=== PATIENT | male | born 1985 | race African-American/Black ===

== ENCOUNTER 2017-07-09 03:38 | Emergency (ER) | payer MEDICAID ==
[2017-07-09 03:44] VITALS: BP 142/92
[2017-07-09] MEDS ORDERED: LIDOCAINE 1% INJ-PF (10 MG/ML) 30 ML SDV INJ ONE (04:10)
[2017-07-09] MEDS ORDERED: AZITHROMYCIN 250 MG TABLET PO ONE (04:10)
[2017-07-09] MEDS ORDERED: CEFTRIAXONE INJ 250 MG VIAL IM ONE (04:10)
--- NOTE | 2017-07-09 04:12 | ER Document Report ---
HPI - HPI Pain Level: Denies Notes: Patient is a 32-year-old male with no significant past medical history who presents to the ED complaining of mild burning with urination 1 day. Patient is concerned because his girlfriend went away on a trip and he did not have symptoms until after she came back recently. Patient states that he would like testing performed for chlamydia and gonorrhea. He has not noticed any abundant urethral discharge. He is eating and drinking without difficulties. He is otherwise urinating normally and having normal bowel movements. Denies any drug allergies. Patient does admit to smoking but denies IV drug use. Denies any headache, fever, URI, sore throat, chest pain, palpitations, syncope, cough , shortness of breath, wheeze, dyspnea, abdominal pain, nausea/vomiting/diarrhea , urinary retention, hematuria, loss of control of bowel or bladder, numbness/ tingling, muscle paralysis/weakness, or rash. - ROS Systems Reviewed and Negative: Yes All other systems reviewed and negative Past Medical History - Social History Smoking Status: Current Every Day Smoker Family History: Reviewed & Not Pertinent Vertical Provider Document - CONSTITUTIONAL Agree With Documented VS: Yes Notes: PHYSICAL EXAMINATION: GENERAL: Well-appearing, well-nourished and in no acute distress. HEAD: Atraumatic, normocephalic. EYES: Pupils equal round and reactive to light, extraocular movements intact, sclera anicteric, conjunctiva are normal. ENT: EAC clear b/l. TM's intact b/l without erythema, fluid, or perforation. Nares patent and without discharge. oropharynx clear without exudates. No tonsilar hypertrophy or erythema. Moist mucous membranes. No sinus tenderness. NECK: Normal range of motion, supple without lymphadenopathy LUNGS: Breath sounds clear to auscultation bilaterally and equal. No wheezes rales or rhonchi. HEART: Regular rate and rhythm without murmurs, rubs, gallops. ABDOMEN: Soft, nontender, nondistended abdomen. No guarding, no rebound. No masses appreciated. Normal bowel sounds present. No CVA tenderness bilaterally. : uncircum. No erythema, induration, rash, lesions, or ulceration. Non- tender to palp of penis/testicles. No inguinal adenopathy. Possible scant urethral discharge, but not enough to make a great clinical decision. PSYCH: Normal mood, normal affect. SKIN: Warm, Dry, normal turgor, no rashes or lesions noted. - INFECTION CONTROL TRAVEL OUTSIDE OF THE [place] IN LAST 30 DAYS: No Course - Re-evaluation Re-evalutation: 07/09/17 04:10 Patient is an afebrile, well-hydrated, 32-year-old male who presents to the ED with dysuria. Vitals are acceptable. PE is otherwise unremarkable. Urinalysis , chlamydia/gonorrhea, urinary culture are all pending. Patient was given Zithromax and Rocephin. Patient did not want to wait for any of his results at this time and he will call back later for them. Patient is aware that he may have to return if other tests or treatment are needed. No other labs or imaging warranted at this time based on H&P. Advised patient that he needs to go the health department for further evaluation and testing as well. Recheck with your PCM in 3-5 days. Return to the ED with any worsening/concerning symptoms otherwise as reviewed discharge. Patient is in agreement. - Vital Signs Vital signs: Temp Pulse Resp BP Pulse Ox 98.8 F 90 20 142/92 H 95 07/09/17 03:43 07/09/17 03:43 07/09/17 03:43 07/09/17 03:43 07/09/17 03:43 Discharge - Discharge Clinical Impression: Dysuria Condition: Stable Disposition: HOME, SELF-CARE Additional Instructions: Push fluids (i.e. water, cranberry juice) Proper hygenic technique Keep the skin clean Safe sexual practices with condoms everytime Tylenol/ibuprofen as needed May use over the counter AZO for burning with urination Check in with the health department this week for further testing* Your chlamydia/Ghon test are pending and you will be notified if positive results; you may call in 1 day for the results as well Return immediately if symptoms worsen F/u with your PCM in 3-5 days for a recheck Consider consult with a Urologist for ongoing/worsening symptoms. Return to the ED with any development of ONEAL/fever, trouble with vision, eye redness, worsening pain, urethral discharge, urinary retention, blood in the urine, flank pain, abdominal pain, n/v, Chest Pain, shortness of breath, joint pains, trouble breathing, or any other worsening/concerning symptoms as needed otherwise. Forms: Elevated Blood Pressure, Smoking Cessation Education Referrals: HEALTH DEPT,[facility] [NO LOCAL MD] - Follow up in 3-5 days
[2017-07-09 14:22] LABS: CHLAM PCR NOT DETECTED (NOT DETECT); GON PCR DETECTED (NOT DETECT)
== END 2017-07-09 04:27 | disposition home or self-care (01) ==
LOC: ER 03:38
DX: R30.0 Dysuria (principal); F17.200 Nicotine dependence, unspecified, uncomplicated
CPT/HCPCS: 99283; 96372; 87491; 87591; Q0144; J3490; J0696

== ENCOUNTER 2017-07-09 23:08 | Emergency (ER) | payer MEDICAID ==
[2017-07-09] MEDS ORDERED: ALBUTEROL SULFATE HFA (90 MCG/PUFF) 8 GM MDI (1 MDI/ER DISP) IH ONE (23:53)
[2017-07-09] MEDS ORDERED: PREDNISONE 20 MG TABLET PO ONE (23:53)
--- NOTE | 2017-07-09 23:56 | ER Document Report ---
ED Respiratory Problem - General Chief Complaint: Chest pain/ cough Stated Complaint: CHEST PAIN Time Seen by Provider: 07/09/17 23:45 Notes: Patient is a 32-year-old male smoker that comes emergency department for chief complaint of progressively worsening coughing, wheezing, and pain in his chest with cough for the past 4 days. He denies pain without cough. He denies fever. He has multiple sick family members. He comes by EMS, was given nitroglycerin and aspirin. He states now he just wants to leave. He denies any daily medications or past medical history, denies family history of cardiac disease. TRAVEL OUTSIDE OF THE [place] IN LAST 30 DAYS: No Past Medical History - General Information source: Patient - Social History Smoking Status: Current Every Day Smoker Smoking Education Provided: Yes - <3 min Frequency of alcohol use: None Drug Abuse: None Lives with: Family Family History: Reviewed & Not Pertinent - Medical History Medical History: Negative Surgical Hx: Negative - Immunizations Immunizations up to date: Yes Hx Diphtheria, Pertussis, Tetanus Vaccination: Yes Review of Systems - Review of Systems Constitutional: No symptoms reported EENT: No symptoms reported Cardiovascular: No symptoms reported Respiratory: See HPI Gastrointestinal: No symptoms reported Genitourinary: No symptoms reported Male Genitourinary: No symptoms reported Musculoskeletal: No symptoms reported Skin: No symptoms reported Hematologic/Lymphatic: No symptoms reported Neurological/Psychological: No symptoms reported Physical Exam - Vital signs Vitals: Temp Pulse Resp BP Pulse Ox 97.5 F 76 18 137/91 H 97 07/10/17 00:00 07/10/17 00:00 07/10/17 00:00 07/10/17 00:00 07/10/17 00:00 Interpretation: Normal - General General appearance: Appears well, Alert In distress: None - HEENT Head: Normocephalic, Atraumatic Eyes: Normal Conjunctiva: Normal Extraocular movements intact: Yes Eyelashes: Normal Pupils: PERRL Nasal: Normal Mouth/Lips: Normal Mucous membranes: Normal Pharynx: Normal Neck: Normal - Respiratory Respiratory status: No respiratory distress Chest status: Nontender Breath sounds: Normal. No: Decreased air movement, Wheezing Chest palpation: Normal - Cardiovascular Rhythm: Regular. No: Tachycardia Heart sounds: Normal auscultation, S1 appreciated, S2 appreciated Murmur: No Normal capillary refill: Yes - Abdominal Inspection: Normal Distension: No distension Bowel sounds: Normal Tenderness: Nontender. No: Tender, Guarding Organomegaly: No organomegaly - Back Back: Normal, Nontender. No: Tender, CVA tenderness - Extremities General upper extremity: Normal inspection, Nontender, Normal color, Normal ROM , Normal temperature General lower extremity: Normal inspection, Nontender, Normal color, Normal ROM , Normal temperature, Normal weight bearing. No: Nidia's sign - Neurological Neuro grossly intact: Yes Cognition: Normal Orientation: AAOx4 [place] Coma Scale Eye Opening: Spontaneous Shantanu Coma Scale Verbal: Oriented Shantanu Coma Scale Motor: Obeys Commands [place] Coma Scale Total: 15 Speech: Normal Cranial nerves: Normal Cerebellar coordination: Normal Motor strength normal: LUE, RUE, LLE, RLE Additional motor exam normals: Equal deckhand maintenance Sensory: Normal - Psychological Associated symptoms: Normal affect, Normal mood - Skin Skin Temperature: Warm Skin Moisture: Dry Skin Color: Normal Course - Re-evaluation Re-evalutation: EKG sinus rhythm with no T-wave inversions or ST segment changes in consecutive leads. Recommended chest x-ray based on his symptoms but patient declined, patient states that he has a family emergency at the house and he needs to leave immediately. Patient has clear lungs, no respiratory distress, unremarkable vital signs, and symptoms suggestive of upper respiratory virus and bronchitis. Patient insists he was wheezing at night, he is provided with an inhaler, he was given a short taper dose of prednisone instead of the full asthma regimen after discussion based on his preference. Discussed follow-up and return precautions, discussed smoking cessation, patient and significant other state understanding and agreement. - Vital Signs Vital signs: Temp Pulse Resp BP Pulse Ox 97.5 F 76 18 137/91 H 97 07/10/17 00:00 07/10/17 00:00 07/10/17 00:00 07/10/17 00:00 07/10/17 00:00 Discharge - Discharge Clinical Impression: Cough, Tobacco abuse Condition: Stable Disposition: HOME, SELF-CARE Additional Instructions: Your evaluation and workup to this point is most consistent with a developing bronchitis, this is usually a viral upper respiratory infection. This takes time to resolve. Recommendation is to take the prednisone, use the albuterol if needed, take the Tessalon for cough if needed. Stop smoking. Follow-up with primary care. Return if you worsen including difficulty breathing, spiking fever, or any other concerning or worsening symptoms. Prescriptions: Benzonatate [Tessalon Perle 100 mg Capsule] 100 mg PO Q8HP PRN #20 cap PRN Reason: Albuterol Sulfate [Proair HFA Inhalation Aerosol 8.5 gm MDI] 2 puff IH Q4H PRN # 1 mdi PRN Reason: Prednisone [Deltasone 10 mg Tablet] 10 mg PO ASDIR PRN #21 tablet PRN Reason: Forms: Smoking Cessation Education
[2017-07-10 01:06] VITALS: BP 137/91
--- NOTE | 2017-07-10 07:17 | EKG REPORT ---
SEVERITY:- NORMAL ECG - SINUS RHYTHM : Confirmed by: Michael Vasquez MD 10-Jul-2017 07:16:49
== END 2017-07-10 00:09 | disposition home or self-care (01) ==
LOC: MERGE 23:08 → ER 23:08
DX: R07.9 Chest pain, unspecified (principal); R05 Cough; F17.200 Nicotine dependence, unspecified, uncomplicated
CPT/HCPCS: 93005; 99283; 93010; J7512; J3490

== ENCOUNTER 2017-07-16 23:29 | Emergency (ER) | payer MEDICAID ==
[2017-07-16 23:49] VITALS: BP 120/71
[2017-07-17] MEDS ORDERED: CEFTRIAXONE INJ 500 MG VIAL IM ONE (01:23)
[2017-07-17] MEDS ORDERED: LIDOCAINE 1% INJ-PF (10 MG/ML) 30 ML SDV INJ ONE (01:23)
[2017-07-17] MEDS ORDERED: AZITHROMYCIN 250 MG TABLET PO ONE (01:23)
[2017-07-17] MEDS ORDERED: METRONIDAZOLE 500 MG TABLET PO ONE (01:23)
[2017-07-17 02:04] LABS: CHLAM PCR NOT DETECTED (NOT DETECT); GON PCR NOT DETECTED (NOT DETECT)
--- NOTE | 2017-07-17 02:13 | ER Document Report ---
HPI - HPI Pain Level: 3 Context: Patient is a 32-year-old male presents emergency department the chief complaint of mild burning at the tip of his penis without pyuria, discharge. Patient states that he is treated for gonorrhea week ago he was told to return symptoms do not improve. - CONSTITUTIONAL Constitutional: DENIES: Fever, Chills - NEURO Neurology: DENIES: Headache, Weakness, Vision blurred, Dizzinesss / Vertigo - CARDIOVASCULAR Cardiovascular: DENIES: Chest pain - RESPIRATORY Respiratory: DENIES: Trouble Breathing, Coughing Past Medical History - Social History Smoking Status: Current Every Day Smoker Chew tobacco use (# tins/day): No Frequency of alcohol use: None Drug Abuse: None Family History: Reviewed & Not Pertinent Patient has suicidal ideation: No Patient has homicidal ideation: No Renal/ Medical History: Denies: Hx Peritoneal Dialysis - Immunizations Immunizations up to date: Yes Hx Diphtheria, Pertussis, Tetanus Vaccination: Yes Vertical Provider Document - CONSTITUTIONAL Agree With Documented VS: Yes Notes: PHYSICAL EXAM GENERAL: Alert, interacts well. Male : Normal inspection. No evidence of vesicles, laceration or wounds. No evidence of inguinal lymphadenopathy. Testicles nontender palpation, nontender. No evidence of penile discharge NEUROLOGICAL: Alert and oriented x4. Normal speech. PSYCH: Normal affect, normal mood. SKIN: Warm, dry, normal turgor. No rashes or lesions noted. - INFECTION CONTROL TRAVEL OUTSIDE OF THE [place] IN LAST 30 DAYS: No Course - Re-evaluation Re-evalutation: 07/17/17 02:12 Patient is a 32-year-old male seen and examined, no distress. Will treat for repeat gonorrhea, chlamydia and trichomonas coverage. Patient educated to follow-up with primary care. To abstain from sexual intercourse for the next week. Patient agrees with plan stable for discharge - Vital Signs Vital signs: Temp Pulse Resp BP Pulse Ox 98.8 F 111 H 20 120/71 94 07/16/17 23:47 07/16/17 23:47 07/16/17 23:47 07/16/17 23:47 07/16/17 23:47 Discharge - Discharge Clinical Impression: STD exposure Condition: Good Disposition: HOME, SELF-CARE Additional Instructions: You been treated for chlamydia, gonorrhea and trichomonas. Please abstain from sexual intercourse for the next 7-10 days. Please follow-up with your primary care provider for any persistent symptoms. Forms: Return to Work [facility] - Follow up as needed
[2017-07-17 02:17] LABS: T.VAGINALIS (WET MOUNT) NO TRICHOMONAS SEEN; WBCS (WET MOUNT) NO WBCS SEEN; YEAST (WET MOUNT) NO YEAST SEEN
== END 2017-07-17 02:21 | disposition home or self-care (01) ==
LOC: ER 23:29
DX: Z20.2 Contact with and (suspected) exposure to infections with a predominantly sexual mode of transmission (principal); R39.89 Other symptoms and signs involving the genitourinary system; F17.200 Nicotine dependence, unspecified, uncomplicated
CPT/HCPCS: 99283; 36415; 87210; 86592; 87491; 87591; Q0144; J3490 ×2; J0696

== ENCOUNTER 2017-08-08 01:45 | Emergency (ER) | payer MEDICAID ==
[2017-08-08 02:18] LABS: ABSOLUTE BASOPHILS # (AUTO) 0.1 10^3/uL (0.0-0.2); ABSOLUTE EOSINOPHILS # (AUTO) 0.4 10^3/uL (0.0-0.6); ABSOLUTE LYMPHOCYTES (AUTO) 3.4 10^3/uL (0.5-4.7); ABSOLUTE MONOCYTES (AUTO) 1.2 10^3/uL (0.1-1.4); ABSOLUTE NEUT (AUTO) 4.9 10^3/uL (1.7-8.2); BASOPHILS % (AUTO) 1.1 % (0-2); HEMATOCRIT 38.3 % (37.9-51.0); HEMOGLOBIN 12.8 g/dL (13.5-17.0); LYMPHOCYTES % (AUTO) 34.2 % (13-45); MEAN CORPUSCULAR HEMOGLOBIN 25.2 pg (27.0-33.4); MEAN CORPUSCULAR HGB CONC 33.3 g/dL (32.0-36.0); MEAN CORPUSCULAR VOLUME 75 fl (80-97); MONOCYTES % (AUTO) 11.6 % (3-13); PLATELET COUNT 315 10^3/uL (150-450); RED BLOOD COUNT 5.08 10^6/uL (4.35-5.55); RED CELL DISTRIBUTION WIDTH 15.6 % (11.5-14.0); SEGMENTED NEUTROPHILS % (AUTO) 49.1 % (42-78); TOTAL CELLS COUNTED % (AUTO) 100 %; WHITE BLOOD COUNT 9.9 10^3/uL (4.0-10.5)
[2017-08-08 02:35] LABS: ALANINE AMINOTRANSFERASE 137 U/L (21-72); ALBUMIN 4.9 g/dL (3.5-5.0); ALKALINE PHOSPHATASE 84 U/L (38-126); ANION GAP 14 (5-19); ASPARTATE AMINO TRANSFERASE 127 U/L (17-59); BILIRUBIN,DIRECT 0.4 mg/dL (0.0-0.4); BILIRUBIN,TOTAL 0.6 mg/dL (0.2-1.3); BLOOD UREA NITROGEN 11 mg/dL (7-20); CALCIUM 10.2 mg/dL (8.4-10.2); CARBON DIOXIDE 23 mmol/L (22-30); CHLORIDE 102 mmol/L (98-107); GLUCOSE 90 mg/dL (75-110); LIPASE 76.7 U/L (23-300); POTASSIUM 4.3 mmol/L (3.6-5.0); SODIUM 139.2 mmol/L (137-145); TOTAL PROTEIN 8.9 g/dL (6.3-8.2)
[2017-08-08 02:46] LABS: APPEARANCE,URINE CLEAR; BILIRUBIN,URINE NEGATIVE (NEGATIVE); COLOR,URINE STRAW; GLUCOSE, URINE NEGATIVE (NEGATIVE); KETONES,URINE NEGATIVE (NEGATIVE); LEUKOCYTE ESTERASE,URINE NEGATIVE (NEGATIVE); NITRITE,URINE NEGATIVE (NEGATIVE); PROTEIN,URINE NEGATIVE (NEGATIVE); URINE SPECIFIC GRAVITY 1.002; UROBILINOGEN,URINE NEGATIVE mg/dL (<2.0)
--- NOTE | 2017-08-08 02:46 | ER Document Report ---
ED General - General Chief Complaint: Flank Pain Stated Complaint: FLANK PAIN Time Seen by Provider: 08/08/17 02:07 Mode of Arrival: Medic Information source: Patient Notes: 32-year-old male presents with complaints of bilateral flank pain difficulty urinating 1 day duration. Patient denies any fevers or chills notes that this morning he started having left flank pain felt pressure in the suprapubic region , notes symptoms have been intermittent and worsened just prior to arrival. Patient presents from work by EMS. He notes burning with urination TRAVEL OUTSIDE OF THE [place] IN LAST 30 DAYS: No - HPI Onset: This morning Onset/Duration: Sudden Quality of pain: Sharp Severity: Mild Pain Level: 1 Associated symptoms: Other Exacerbated by: Denies Relieved by: Denies Similar symptoms previously: No Recently seen / treated by doctor: No - Related Data Allergies/Adverse Reactions: No Known Allergies Allergy (Verified 03/16/15 20:17) Past Medical History - Social History Smoking Status: Never Smoker Cigarette use (# per day): No Chew tobacco use (# tins/day): No Smoking Education Provided: No Family History: Reviewed & Not Pertinent Patient has suicidal ideation: No Patient has homicidal ideation: No Renal/ Medical History: Denies: Hx Peritoneal Dialysis - Immunizations Immunizations up to date: Yes Hx Diphtheria, Pertussis, Tetanus Vaccination: Yes Review of Systems - Review of Systems Notes: REVIEW OF SYSTEMS: CONSTITUTIONAL : Denies fever, chills, or sweats. Denies recent illness. EENT: Denies eye, ear, throat, or mouth pain or symptoms. Denies nasal or sinus congestion or discharge. Denies throat, tongue, or mouth swelling or difficulty swallowing. CARDIOVASCULAR: Denies chest pain. Denies palpitations or racing or irregular heart beat. Denies ankle edema. RESPIRATORY: Denies cough, cold, or chest congestion. Denies shortness of breath, difficulty breathing, or wheezing. GASTROINTESTINAL: Admits to left flank pain GENITOURINARY: Admits to difficulty urinating MUSCULOSKELETAL: Denies back or neck pain or stiffness. Denies joint pain or swelling. SKIN: Denies rash, lesions or sores. HEMATOLOGIC : Denies easy bruising or bleeding. LYMPHATIC: Denies swollen, enlarged glands. NEUROLOGICAL: Denies confusion or altered mental status. Denies passing out or loss of consciousness. Denies dizziness or lightheadedness. Denies headache. Denies weakness or paralysis or loss of use of either side. Denies problems with gait or speech. Denies sensory loss, numbness, or tingling. Denies seizures. PSYCHIATRIC: Denies anxiety or stress. Denies depression, suicidal ideation, or homicidal ideation. ALL OTHER SYSTEMS REVIEWED AND NEGATIVE. PHYSICAL EXAMINATION: GENERAL: Well-appearing, well-nourished and in no acute distress. HEAD: Atraumatic, normocephalic. EYES: Pupils equal round and reactive to light, extraocular movements intact, conjunctiva are normal. ENT: Nares patent, oropharynx clear without exudates. Moist mucous membranes. NECK: Normal range of motion, supple without lymphadenopathy LUNGS: Breath sounds clear to auscultation bilaterally and equal. No wheezes rales or rhonchi. HEART: Regular rate and rhythm without murmurs ABDOMEN: Soft, mild suprapubic tenderness, nondistended abdomen. No guarding, no rebound. No masses appreciated. Musculoskeletal: Normal range of motion, no pitting or edema. No cyanosis. NEUROLOGICAL: Cranial nerves grossly intact. Normal speech, normal gait. Normal sensory, motor exams PSYCH: Normal mood, normal affect. SKIN: Warm, Dry, normal turgor, no rashes or lesions noted. Dictation was performed using [employer] voice recognition software Course - Re-evaluation Re-evalutation: 08/08/17 04:36 Patient's lab work urinalysis CT noted no significant normality patient did not notes his concern for STD, I did already test him for this given that he had a positive gonorrhea just a few weeks ago. Patient significant other is in the room states she tested negative and does not understand how he can be positive Otherwise patient will be given follow-up with health department and urology as he is otherwise stable patient notes difficulty urinating but was able to urinate 3 separate times for us After performing a Medical Screening Examination, I estimate there is LOW risk for ACUTE APPENDICITIS, BOWEL OBSTRUCTION, ACUTE CHOLECYSTITIS, PERFORATED DIVERTICULITIS, INCARCERATED HERNIA, PANCREATITIS, TESTICULAR TORSION or PERFORATED ULCER, thus I consider the discharge disposition reasonable. Also, there is no evidence or peritonitis, sepsis, or toxicity. I have reevaluated this patient multiple times and no significant life threatening changes are noted. The patient and I have discussed the diagnosis and risks, and we agree with discharging home with close follow-up with the understanding that symptoms and presentations can change. We also discussed returning to the Emergency Department immediately if new or worsening symptoms occur. We have discussed the symptoms which are most concerning (e.g., bloody stool, fever, changing or worsening pain, intractable vomiting - standard verbal up date) that necessitate immediate return. 08/08/17 04:37 - Laboratory Result Diagrams: 08/08/17 02:05 08/08/17 02:05 Laboratory results interpreted by me: 08/08/17 08/08/17 02:05 02:05 Hgb 12.8 L MCV 75 L MCH 25.2 L RDW 15.6 H AST 127 H ALT 137 H Total Protein 8.9 H - Diagnostic Test Radiology reviewed: Image reviewed, Reports reviewed Discharge - Discharge Clinical Impression: Difficulty urinating Condition: Stable Disposition: HOME, SELF-CARE Instructions: Urinary Retention ([facility]) Referrals: [facility] [Provider Group] - Follow up as needed
--- NOTE | 2017-08-08 03:49 | RADIOLOGY REPORT (SQ) ---
EXAM DESCRIPTION: CT ABDOMEN WITHOUT IV CONTRAST COMPLETED DATE/TME: 08/08/2017 03:11 CLINICAL HISTORY: 32 years Male, flank pain ,difficulty urinating Comparison: None. Technique: No contrast. Coronal and sagittal reformat. This exam was performed according to our departmental dose-optimization program, which includes automated exposure control, adjustment of the mA and/or kV according to patient size and/or use of iterative reconstruction technique.[facility]: Dose Right [facility]: CareDose [facility]: Dose Right [facility]: Teradose 4D [facility]: BoostSuite LIMITATIONS: None Findings: Hepatic steatosis. Unenhanced lower thorax, abdominopelvic structures including normal appendix, and musculoskeleton appear otherwise grossly unremarkable. Impression: No acute findings. Hepatic steatosis.
[2017-08-08 05:16] VITALS: BP 146/88
[2017-08-08 08:28] LABS: CHLAM PCR NOT DETECTED (NOT DETECT); GON PCR NOT DETECTED (NOT DETECT)
== END 2017-08-08 04:53 | disposition home or self-care (01) ==
LOC: ER 01:45
DX: R10.9 Unspecified abdominal pain (principal); R30.0 Dysuria
CPT/HCPCS: 36415; 76380; 80053; 81001; 83690; 85025; 87491; 87591; 99284

== ENCOUNTER 2018-01-09 02:27 | Emergency (ER) | payer MEDICAID ==
[2018-01-09 02:32] VITALS: BP 135/81
[2018-01-09] MEDS ORDERED: CEFTRIAXONE INJ 250 MG VIAL IM ONE (02:45)
[2018-01-09] MEDS ORDERED: LIDOCAINE 1% INJ-PF (10 MG/ML) 30 ML SDV INFIL ONE (02:45)
[2018-01-09] MEDS ORDERED: DOXYCYCLINE HYCLATE 100 MG TABLET PO ONE (02:45)
--- NOTE | 2018-01-09 03:17 | ER Document Report ---
ED General - General Chief Complaint: STD Exposure Stated Complaint: STD CHECK Time Seen by Provider: 01/09/18 02:37 Notes: Patient is a pleasant 32-year-old male who presents with complaint of some dysuria. Says it is very has been ongoing for over a week. Exercise doctor week ago who told him he could potentially have STD and gave him a gram of azithromycin. He said this medicine made his stomach hurt and eventually vomited it back up. He is supposed to go have his urine tested but never did. He is sexually active with his fiance. He denies any fevers. No abdominal pain. No other complaints at this time. Denies any abnormal discharge from the penis. So no testicular tenderness. No scrotal swelling. TRAVEL OUTSIDE OF THE [place] IN LAST 30 DAYS: No - Related Data Allergies/Adverse Reactions: No Known Allergies Allergy (Verified 03/16/15 20:17) Past Medical History - Social History Smoking Status: Current Every Day Smoker Chew tobacco use (# tins/day): No Frequency of alcohol use: Occasional Drug Abuse: None Family History: Reviewed & Not Pertinent Patient has suicidal ideation: No Patient has homicidal ideation: No Renal/ Medical History: Denies: Hx Peritoneal Dialysis - Immunizations Immunizations up to date: Yes Hx Diphtheria, Pertussis, Tetanus Vaccination: Yes Review of Systems - Review of Systems Notes: My Normal Review Basic REVIEW OF SYSTEMS: CONSTITUTIONAL : Denies fever, chills, or sweats. GASTROINTESTINAL: Denies abdominal pain. Denies nausea, vomiting, GENITOURINARY: Some burning with urination. MUSCULOSKELETAL: Denies neck or back pain or joint pain or swelling. SKIN: Denies rash or skin lesions. NEUROLOGICAL: Denies altered mental status or loss of consciousness. ALL OTHER SYSTEMS REVIEWED AND NEGATIVE. Physical Exam - Vital signs Vitals: Temp Pulse Resp BP Pulse Ox 97.8 F 84 16 135/81 H 97 01/09/18 02:30 01/09/18 02:30 01/09/18 02:30 01/09/18 02:30 01/09/18 02:30 - Notes Notes: General Appearance: Well nourished, alert, cooperative, no acute distress, no obvious discomfort. Vitals: reviewed, See vital signs table. Abdomen: Normal BS, soft, No rigidity, No abdominal tenderness, No guarding, no rebound, no abdominal masses, no organomegaly Genital: Normal external genitalia. No redness or swelling. No discharge from the urethral meatus. Neuro: speech clear, oriented x 3, normal affect, responds appropriately to questions. Course - Re-evaluation Re-evalutation: 01/09/18 04:28 Patient's fianc also checked in. She went to be tested because of his symptoms. She informs me that they actually sometimes do anal sex without condoms. This could be contributing to his dysuria. I did treat him upfront for STDs. We have sent his urine for testing for STDs. He did not want to wait on results. Informed him that then box to give him would cover gonorrhea chlamydia. Informed him that he could cover some for E. coli but may not fully treated if that is the underlying cause of his burning with urination. I informed him if he still having symptoms after several days of treatment that he should return to ER for reevaluation and retest of his urine. Patient agrees with plan will be discharged home. I informed him do not have sex for at least 1 week. Informed him that if he does have anal sex that he must wear a condom when doing so. Dictation of this chart was performed using voice recognition software; therefore, there may be some unintended grammatical errors. - Vital Signs Vital signs: Temp Pulse Resp BP Pulse Ox 97.8 F 84 16 135/81 H 97 01/09/18 02:30 01/09/18 02:30 01/09/18 02:30 01/09/18 02:30 01/09/18 02:30 Discharge - Discharge Clinical Impression: STD exposure Condition: Good Disposition: HOME, SELF-CARE Additional Instructions: Doxycycline will make your skin more sensitive to the sun so please make sure you keep your skin covered or wear sunscreen whenever out in the sun. Please take the antibiotic as prescribed. Please do not have sex for at least 1 week. Please call [phone] on Saturday to obtain the results of your urine test. Prescriptions: Doxycycline Hyclate 100 mg PO BID #14 capsule Referrals: HUSAM PEDRAZA MD [Primary Care Provider] - Follow up in 1 week
[2018-01-09 04:36] LABS: CHLAM PCR NOT DETECTED (NOT DETECT); GON PCR NOT DETECTED (NOT DETECT)
== END 2018-01-09 03:15 | disposition home or self-care (01) ==
LOC: ER 02:27
DX: Z20.2 Contact with and (suspected) exposure to infections with a predominantly sexual mode of transmission (principal); R30.0 Dysuria; F17.200 Nicotine dependence, unspecified, uncomplicated
CPT/HCPCS: 99283; 96372; 87491; 87591; J3490 ×2; J0696

== ENCOUNTER 2018-04-24 23:23 | Emergency (ER) | payer MEDICAID ==
[2018-04-24] MEDS ORDERED: ASPIRIN 81 MG TABLET, CHEWABLE PO ONE (23:54)
[2018-04-25 00:01] LABS: ABSOLUTE BASOPHILS # (AUTO) 0.2 10^3/uL (0.0-0.2); ABSOLUTE EOSINOPHILS # (AUTO) 0.2 10^3/uL (0.0-0.6); ABSOLUTE LYMPHOCYTES (AUTO) 2.5 10^3/uL (0.5-4.7); ABSOLUTE MONOCYTES (AUTO) 1.2 10^3/uL (0.1-1.4); ABSOLUTE NEUT (AUTO) 3.9 10^3/uL (1.7-8.2); BASOPHILS % (AUTO) 1.9 % (0-2); EOSINOPHILS % (AUTO) 2.5 % (0-6); HEMATOCRIT 36.9 % (37.9-51.0); HEMOGLOBIN 12.2 g/dL (13.5-17.0); MEAN CORPUSCULAR HEMOGLOBIN 24.6 pg (27.0-33.4); MEAN CORPUSCULAR VOLUME 75 fl (80-97); MONOCYTES % (AUTO) 15.2 % (3-13); PLATELET COUNT 288 10^3/uL (150-450); RED BLOOD COUNT 4.94 10^6/uL (4.35-5.55); SEGMENTED NEUTROPHILS % (AUTO) 49.4 % (42-78); TOTAL CELLS COUNTED % (AUTO) 100 %
[2018-04-25 00:23] LABS: ALANINE AMINOTRANSFERASE 141 U/L (21-72); ALBUMIN 5.1 g/dL (3.5-5.0); ALKALINE PHOSPHATASE 129 U/L (38-126); ANION GAP 14 (5-19); ASPARTATE AMINO TRANSFERASE 203 U/L (17-59); BILIRUBIN,DIRECT 0.4 mg/dL (0.0-0.4); BILIRUBIN,TOTAL 1.1 mg/dL (0.2-1.3); BLOOD UREA NITROGEN 8 mg/dL (7-20); CALCIUM 10.3 mg/dL (8.4-10.2); CARBON DIOXIDE 25 mmol/L (22-30); CHLORIDE 98 mmol/L (98-107); CREATINE KINASE 256 U/L (55-170); GLUCOSE 97 mg/dL (75-110); POTASSIUM 3.9 mmol/L (3.6-5.0); SODIUM 137.4 mmol/L (137-145); TOTAL PROTEIN 9.6 g/dL (6.3-8.2)
[2018-04-25 00:35] LABS: CREATINE KINASE MB 0.54 ng/mL (<4.55)
--- NOTE | 2018-04-25 00:35 | ER Document Report ---
ED Medical Screen (RME) - General Chief Complaint: Chest Pain > 30 Stated Complaint: CHEST PAIN Time Seen by Provider: 04/25/18 00:29 Primary Care Provider: HUSAM PEDRAZA MD [Primary Care Provider] - Follow up as needed Mode of Arrival: Ambulatory Information source: Patient Notes: 33-year-old male presents to ED for complaint of chest pain this started this evening he became very dizzy. He states EMS was called and they said because he had chest pain dizziness and elevated blood pressure when they examined him that he needed to come to the emergency room. Patient states he drinks heavily every night. He states he drinks between 15 beer or more as well as 3 shots of liquor a night. He states tonight he started about 8 PM and is only had 4 beers and 2 shots of liquor. He states he usually drinks much more this without becoming dizzy. He denies any medical history except for the history of drinking. He states he works in construction does not smoke and does not use drugs. He is alert oriented respirations regular and unlabored denies any pain at this time lungs are clear to auscultation. I have greeted and performed a rapid initial assessment of this patient. A comprehensive ED assessment and evaluation of the patient, analysis of test results and completion of medical decision making process will be conducted by an additional ED providers. TRAVEL OUTSIDE OF THE [place] IN LAST 30 DAYS: No - Related Data Allergies/Adverse Reactions: No Known Allergies Allergy (Verified 03/16/15 20:17) Past Medical History Renal/ Medical History: Denies: Hx Peritoneal Dialysis - Immunizations Immunizations up to date: Yes Hx Diphtheria, Pertussis, Tetanus Vaccination: Yes Physical Exam - Vital signs Vitals: Temp Pulse Resp BP Pulse Ox 98.8 F 82 16 148/96 H 99 04/24/18 23:34 04/24/18 23:34 04/24/18 23:34 04/24/18 23:34 04/24/18 23:34 Course - Vital Signs Vital signs: Temp Pulse Resp BP Pulse Ox 98.8 F 82 16 148/96 H 99 04/24/18 23:34 04/24/18 23:34 04/24/18 23:34 04/24/18 23:34 04/24/18 23:34 - Laboratory Result Diagrams: 04/24/18 23:50 04/24/18 23:50 Laboratory results interpreted by me: 04/24/18 23:50 Hgb 12.2 L Hct 36.9 L MCV 75 L MCH 24.6 L RDW 16.0 H Monocytes % 15.2 H Doctor's Discharge - Discharge Referrals: HUSAM PEDRAZA MD [Primary Care Provider] - Follow up as needed
[2018-04-25 00:37] LABS: TROPONIN I < 0.012 ng/mL
--- NOTE | 2018-04-25 00:55 | RADIOLOGY REPORT (SQ) ---
EXAM DESCRIPTION: XR CHEST 1 VIEW COMPLETED DATE/TME: 04/24/2018 23:54 CLINICAL HISTORY: 33 years, Male, chest pain COMPARISON: None. NUMBER OF VIEWS: 1 TECHNIQUE: Frontal view chest LIMITATIONS: None. FINDINGS: Heart size is normal. Lungs are clear. No pneumothorax IMPRESSION: Negative chest copyright 2010 [id number]- All Rights Reserved
--- NOTE | 2018-04-25 01:29 | ER Document Report ---
ED General - General Chief Complaint: Chest Pain > 30 Stated Complaint: CHEST PAIN Time Seen by Provider: 04/25/18 00:29 Primary Care Provider: HUSAM PEDRAZA MD [Primary Care Provider] - Follow up as needed Mode of Arrival: Ambulatory Notes: 33-year-old male brought in by ambulance to ED for complaint of chest pain that started this evening after he became very dizzy. Patient said he had a very light pain about 2 days ago in his left chest that has since resolved. He states the dizziness is what prompted him to seek treatment. Patient states that EMS told him his blood pressure was in the 190s and they gave him a nitroglycerin tab on the rig. Patient states he drinks heavily every night, between 15 beer or more as well as 3 shots of liquor a night. He states tonight he started about 8 PM and is only had 4 beers and 2 shots of liquor. He states he usually drinks much more this without becoming dizzy. He denies fevers or chills, abdominal pain. Denies irregular heartbeat. Complaints TRAVEL OUTSIDE OF THE [place] IN LAST 30 DAYS: No - Related Data Allergies/Adverse Reactions: No Known Allergies Allergy (Verified 03/16/15 20:17) Past Medical History - General Information source: Patient - Social History Smoking Status: Current Every Day Smoker Chew tobacco use (# tins/day): No Frequency of alcohol use: Heavy Family History: Reviewed & Not Pertinent Patient has suicidal ideation: No Patient has homicidal ideation: No Renal/ Medical History: Denies: Hx Peritoneal Dialysis - Immunizations Immunizations up to date: Yes Hx Diphtheria, Pertussis, Tetanus Vaccination: Yes Review of Systems - Review of Systems Constitutional: See HPI EENT: No symptoms reported Cardiovascular: See HPI Respiratory: See HPI Gastrointestinal: See HPI Genitourinary: No symptoms reported Male Genitourinary: No symptoms reported Musculoskeletal: No symptoms reported Skin: No symptoms reported Hematologic/Lymphatic: No symptoms reported Neurological/Psychological: No symptoms reported Physical Exam - Vital signs Vitals: Temp Pulse Resp BP Pulse Ox 98.8 F 82 16 148/96 H 99 04/24/18 23:34 04/24/18 23:34 04/24/18 23:34 04/24/18 23:34 04/24/18 23:34 - Notes Notes: PHYSICAL EXAMINATION: Reviewed vital signs and charting by RN GENERAL: Alert, interacts well. No acute distress. HEAD: Normocephalic, atraumatic. EYES: Pupils equal, round, scleral icterus ENT: Oral mucosa moist NECK: Full range of motion. Supple. Trachea midline. LUNGS: Clear to auscultation bilaterally, no wheezes, rales, or rhonchi. No respiratory distress. HEART: Regular rate and rhythm. No murmur ABDOMEN: soft, non-tender. Non-distended. Bowel sounds present in all 4 qu adrants. no McBurney's point tenderness, no Beebe sign. EXTREMITIES: Moves all 4 extremities spontaneously. No edema, No cyanosis. NEUROLOGICAL: Alert. Normal speech. PSYCH: Normal affect, normal mood. SKIN: Warm, dry, normal turgor. No rashes or lesions noted. Course - Re-evaluation Re-evalutation: 04/25/18 01:27 Generally well-appearing male. Initial troponin negative. HEART Score: 2. Patient with abnormal liver enzymes consistent with alcohol abuse. I added a lipase. 04/25/18 03:16 Lipase within normal range to no concern for pancreatitis. Second troponin is drawn and is pending. Patient is completely chest pain-free and has been for the last day. 04/25/18 04:06 Second troponin negative. This patient is very low risk for cardiac etiology. I do not suspect ACS, aortic dissection, or aortic aneurysm. Patient is safe and stable for discharge home with follow primary care. - Vital Signs Vital signs: Temp Pulse Resp BP Pulse Ox 98.8 F 82 12 140/97 H 100 04/24/18 23:34 04/24/18 23:34 04/25/18 03:01 04/25/18 03:01 04/25/18 03:01 - Laboratory Result Diagrams: 04/24/18 23:50 04/24/18 23:50 Laboratory results interpreted by me: 04/24/18 04/24/18 23:50 23:50 Hgb 12.2 L Hct 36.9 L MCV 75 L MCH 24.6 L RDW 16.0 H Monocytes % 15.2 H Calcium 10.3 H AST 203 H ALT 141 H Alkaline Phosphatase 129 H Creatine Kinase 256 H Total Protein 9.6 H Albumin 5.1 H Discharge - Discharge Clinical Impression: Chest pain Qualifiers: Chest pain type: unspecified Qualified Code(s): R07.9 - Chest pain, unspecified Condition: Good Disposition: HOME, SELF-CARE Additional Instructions: You were seen today for chest pain. The exact cause of your pain is unclear. However, based on your cardiac enzyme testing, chest x-ray, and EKG it does not appear that it is from an immediately life-threatening cause at this time. Although your testing here is normal is critical that you follow-up with your primary care physician for continued evaluation of this chest pain and possible stress testing. I recommended you see your physician within the next 24-48 hours to be evaluated for consideration of a stress test. Please return to emergency department immediately if you have worsening of your chest pain, shortness of breath, vomiting, become unable to exert yourself due to pain or difficulty breathing, you pass out, or have any pain that radiates into your arms, jaw, or back. Please also return if you have any additional symptoms that are concerning to you. Also, it is great that you want to cut back on drinking. Because she drinks so much she needs to quit under supervised status. Withdrawals are dangerous and could kill you if you quit cold turkey. Follow-up with your primary care doctor in the next 24 hours. Referrals: HUSAM PEDRAZA MD [Primary Care Provider] - Follow up as needed
[2018-04-25 04:29] VITALS: BP 148/99
--- NOTE | 2018-04-25 07:33 | EKG REPORT ---
SEVERITY:- NORMAL ECG - SINUS RHYTHM : Confirmed by: Maria M Gannon MD 25-Apr-2018 07:32:33
== END 2018-04-25 04:29 | disposition home or self-care (01) ==
LOC: ER 23:23
DX: R07.9 Chest pain, unspecified (principal); R42 Dizziness and giddiness; F17.200 Nicotine dependence, unspecified, uncomplicated
CPT/HCPCS: 36415; 71045; 80053; 82550; 82553; 83690; 84484; 85025; 93005; 93010; 99284

== ENCOUNTER 2019-05-24 01:24 | Emergency (ER) | payer MEDICAID ==
[2019-05-24 02:02] LABS: ABSOLUTE BASOPHILS # (AUTO) 0.1 10^3/uL (0.0-0.2); ABSOLUTE EOSINOPHILS # (AUTO) 0.2 10^3/uL (0.0-0.6); ABSOLUTE LYMPHOCYTES (AUTO) 2.6 10^3/uL (0.5-4.7); ABSOLUTE MONOCYTES (AUTO) 1.1 10^3/uL (0.1-1.4); ABSOLUTE NEUT (AUTO) 3.9 10^3/uL (1.7-8.2); BASOPHILS % (AUTO) 1.5 % (0-2); EOSINOPHILS % (AUTO) 2.3 % (0-6); HEMATOCRIT 37.8 % (37.9-51.0); LYMPHOCYTES % (AUTO) 32.4 % (13-45); MEAN CORPUSCULAR HEMOGLOBIN 25.1 pg (27.0-33.4); MEAN CORPUSCULAR HGB CONC 34.5 g/dL (32.0-36.0); MEAN CORPUSCULAR VOLUME 73 fl (80-97); MONOCYTES % (AUTO) 14.4 % (3-13); PLATELET COUNT 335 10^3/uL (150-450); RED CELL DISTRIBUTION WIDTH 15.5 % (11.5-14.0); SEGMENTED NEUTROPHILS % (AUTO) 49.4 % (42-78); TOTAL CELLS COUNTED % (AUTO) 100 %
[2019-05-24 02:06] LABS: APPEARANCE,URINE CLEAR; BILIRUBIN,URINE NEGATIVE (NEGATIVE); GLUCOSE, URINE NEGATIVE (NEGATIVE); KETONES,URINE TRACE mg/dL (NEGATIVE); LEUKOCYTE ESTERASE,URINE NEGATIVE (NEGATIVE); NITRITE,URINE NEGATIVE (NEGATIVE); PROTEIN,URINE 100 mg/dL (NEGATIVE); URINE SPECIFIC GRAVITY 1.024
[2019-05-24 02:08] LABS: COLOR,URINE DARK YELLOW
--- NOTE | 2019-05-24 02:44 | RADIOLOGY REPORT (SQ) ---
ABDOMINAL RADIOGRAPH: 05/24/2019 1:43 AM CDT COMPARISON: None available TECHNIQUE: A single radiograph of the abdomen was obtained. HISTORY: 34-year old with left-sided abdominal pain. FINDINGS: Only the lower abdomen was included on this examination. The visualized bowel gas pattern is nonspecific and nonobstructive. No abnormal intra-abdominal calcifications are seen. There are no findings to suggest organomegaly. There is a moderate amount of stool projecting at the colon. The lung bases were not fully included on this examination. IMPRESSION: The bowel gas pattern is nonobstructive and nonspecific.
[2019-05-24] MEDS ORDERED: MINERAL OIL ENEMA 133 ML PR ONE (03:45)
[2019-05-24] MEDS ORDERED: MAGNESIUM CITRATE 296 ML BOTTLE PO ONE (03:45)
[2019-05-24 04:31] LABS: ALBUMIN 4.8 g/dL (3.5-5.0); ALKALINE PHOSPHATASE 136 U/L (38-126); ANION GAP 11 (5-19); ASPARTATE AMINO TRANSFERASE 160 U/L (17-59); BILIRUBIN,DIRECT 0.3 mg/dL (0.0-0.4); BLOOD UREA NITROGEN 9 mg/dL (7-20); CALCIUM 10.3 mg/dL (8.4-10.2); CARBON DIOXIDE 21 mmol/L (22-30); CHLORIDE 102 mmol/L (98-107); GLUCOSE 100 mg/dL (75-110); POTASSIUM 4.1 mmol/L (3.6-5.0); TOTAL PROTEIN 9.4 g/dL (6.3-8.2)
--- NOTE | 2019-05-24 04:38 | ER Document Report ---
HPI - HPI Time Seen by Provider: 05/24/19 01:56 Pain Level: 3 Notes: Otherwise healthy 34-year-old male presenting to the emergency department chief complaint of left lower quadrant abdominal pain. Patient reports he has not had a normal bowel movement in several days, he thinks he may be constipated. He denies any nausea, vomiting, diarrhea or fever. Denies any cough or congestion, denies any recent travel or exposure to any known COVID-19 patients. - CONSTITUTIONAL Constitutional: REPORTS: Fever. DENIES: Chills - GASTROINTESTINAL Gastrointestinal: REPORTS: Abdominal Pain - REPRODUCTIVE Reproductive: DENIES: : Past Medical History - General Information source: Patient - Social History Smoking Status: Current Every Day Smoker Frequency of alcohol use: 3 beers per day Family History: Reviewed & Not Pertinent Patient has suicidal ideation: No Patient has homicidal ideation: No - Medical History Medical History: Negative Renal/ Medical History: Denies: Hx Peritoneal Dialysis Surgical Hx: Negative - Immunizations Immunizations up to date: Yes Hx Diphtheria, Pertussis, Tetanus Vaccination: Yes Vertical Provider Document - CONSTITUTIONAL Notes: PHYSICAL EXAMINATION: GENERAL: Well-appearing, well-nourished and in no acute distress. HEAD: Atraumatic, normocephalic. EYES: Pupils equal round and reactive to light, extraocular movements intact, sclera anicteric, conjunctiva are normal. ENT: Nares patent, oropharynx clear without exudates. Moist mucous membranes. NECK: Normal range of motion, supple without lymphadenopathy LUNGS: Breath sounds clear to auscultation bilaterally and equal. No wheezes rales or rhonchi. HEART: Regular rate and rhythm without murmurs ABDOMEN: Soft, nondistended abdomen. Left lower quadrant abdominal pain with palpation. No guarding, no rebound. No masses appreciated. Musculoskeletal: Normal range of motion, no pitting or edema. No cyanosis. NEUROLOGICAL: Cranial nerves grossly intact. Normal speech, normal gait. Normal sensory, motor exams PSYCH: Normal mood, normal affect. SKIN: Warm, Dry, normal turgor, no rashes or lesions noted. - INFECTION CONTROL TRAVEL OUTSIDE OF THE [place] IN LAST 30 DAYS: No Course - Re-evaluation Re-evalutation: Laboratory 05/24/19 05/24/19 05/24/19 01:49 01:49 01:49 WBC 8.0 RBC 5.20 Hgb 13.0 L Hct 37.8 L MCV 73 L MCH 25.1 L MCHC 34.5 RDW 15.5 H Plt Count 335 Lymph % (Auto) 32.4 [place] % (Auto) 14.4 H Eos % (Auto) 2.3 Baso % (Auto) 1.5 Absolute Neuts (auto) 3.9 Absolute Lymphs (auto) 2.6 Absolute Monos (auto) 1.1 Absolute Eos (auto) 0.2 Absolute Basos (auto) 0.1 Seg Neutrophils % 49.4 Sodium Cancelled Potassium Cancelled Chloride Cancelled Carbon Dioxide Cancelled Anion Gap Cancelled BUN Cancelled Creatinine Cancelled Est GFR ( Amer) Cancelled Est GFR (Non-Af Amer) Cancelled Est GFR (MDRD) Non-Af Cancelled Glucose Cancelled Calcium Cancelled Total Bilirubin Cancelled Direct Bilirubin Cancelled Neonat Total Bilirubin Cancelled Neonat Direct Bilirubin Cancelled Neonat Indirect Bili Cancelled AST Cancelled ALT Cancelled Alkaline Phosphatase Cancelled Total Protein Cancelled Albumin Cancelled Lipase Cancelled EGFR Cancelled Urine Color DARK YELLOW Urine Appearance CLEAR Urine pH 5.0 Ur Specific [place] 1.024 Urine Protein 100 H Urine Glucose (UA) NEGATIVE Urine Ketones TRACE H Urine Blood NEGATIVE Urine Nitrite NEGATIVE Urine Bilirubin NEGATIVE Urine Urobilinogen 2.0 H Ur Leukocyte Esterase NEGATIVE Urine WBC (Auto) 1 Urine RBC (Auto) 1 Squamous Epi Cells Auto <1 Urine Mucus (Auto) OCC Urine Ascorbic Acid NEGATIVE 05/24/19 05/24/19 05/24/19 02:38 03:05 03:50 WBC RBC Hgb Hct MCV MCH MCHC RDW Plt Count Lymph % (Auto) [place] % (Auto) Eos % (Auto) Baso % (Auto) Absolute Neuts (auto) Absolute Lymphs (auto) Absolute Monos (auto) Absolute Eos (auto) Absolute Basos (auto) Seg Neutrophils % Sodium Cancelled Cancelled 134.2 L Potassium Cancelled Cancelled 4.1 Chloride Cancelled Cancelled 102 Carbon Dioxide Cancelled Cancelled 21 L Anion Gap Cancelled Cancelled 11 BUN Cancelled Cancelled 9 Creatinine Cancelled Cancelled 0.92 Est GFR ( Amer) Cancelled Cancelled > 60 Est GFR (Non-Af Amer) Cancelled Cancelled Est GFR (MDRD) Non-Af Cancelled Cancelled > 60 Glucose Cancelled Cancelled 100 Calcium Cancelled Cancelled 10.3 H Total Bilirubin Cancelled Cancelled 1.0 Direct Bilirubin Cancelled Cancelled 0.3 Neonat Total Bilirubin Cancelled Cancelled Not Reportable Neonat Direct Bilirubin Cancelled Cancelled Not Reportable Neonat Indirect Bili Cancelled Cancelled Not Reportable AST Cancelled Cancelled 160 H ALT Cancelled Cancelled 117 H Alkaline Phosphatase Cancelled Cancelled 136 H Total Protein Cancelled Cancelled 9.4 H Albumin Cancelled Cancelled 4.8 Lipase Cancelled Cancelled 76.9 EGFR Cancelled Cancelled Urine Color Urine Appearance Urine pH Ur Specific [place] Urine Protein Urine Glucose (UA) Urine Ketones Urine Blood Urine Nitrite Urine Bilirubin Urine Urobilinogen Ur Leukocyte Esterase Urine WBC (Auto) Urine RBC (Auto) Squamous Epi Cells Auto Urine Mucus (Auto) Urine Ascorbic Acid KUB X-Ray 05/24/19 01:57 IMPRESSION: The bowel gas pattern is nonobstructive and nonspecific. Patient appears well, nontoxic his vital signs are within normal limits. Patient's liver enzymes are elevated however looking through his previous records they have been elevated several times in the past. Lipase negative. Labs otherwise unremarkable. There is nonobstructive bowel gas on the KUB x-ray as well as stool burden near the rectum. Patient will be given magnesium citrate and an enema to take home. Patient is in agreements with this plan. - Vital Signs Vital signs: Temp Pulse Resp BP Pulse Ox 98.5 F 99 17 164/99 H 95 05/24/19 01:36 05/24/19 01:36 05/24/19 01:36 05/24/19 01:36 05/24/19 01:36 - Laboratory Result Diagrams: 05/24/19 01:49 05/24/19 03:50 Laboratory results interpreted by me: 05/24/19 05/24/19 05/24/19 01:49 01:49 03:50 Hgb 13.0 L Hct 37.8 L MCV 73 L MCH 25.1 L RDW 15.5 H [place] % (Auto) 14.4 H Sodium 134.2 L Carbon Dioxide 21 L Calcium 10.3 H AST 160 H ALT 117 H Alkaline Phosphatase 136 H Total Protein 9.4 H Urine Protein 100 H Urine Ketones TRACE H Urine Urobilinogen 2.0 H Discharge - Discharge Clinical Impression: Elevated liver enzymes Constipation Qualifiers: Constipation type: unspecified constipation type Qualified Code(s): K59.00 - Constipation, unspecified Condition: Stable Disposition: HOME, SELF-CARE Additional Instructions: You continue to have elevated liver enzymes. Today's liver enzymes are similar to the ones you had drawn 1 year ago here at our facility. Please follow-up with primary care for further evaluation of this and monitoring. Please take medications as sent home with you for constipation. Return to the emergency department if you develop worsening symptoms such as development of fever or worsening abdominal pain. Referrals: HUSAM PEDRAZA MD [Primary Care Provider] - Follow up as needed
[2019-05-24 04:50] VITALS: BP 155/96
== END 2019-05-24 04:50 | disposition home or self-care (01) ==
LOC: ER 01:24
DX: R74.8 Abnormal levels of other serum enzymes (principal); K59.00 Constipation, unspecified; R10.32 Left lower quadrant pain; F17.200 Nicotine dependence, unspecified, uncomplicated
CPT/HCPCS: 99284; 36415; 83690; 85025; 80053; 81001; 74018; J3490 ×2

== ENCOUNTER 2019-05-26 18:13 | Emergency (ER) | payer MEDICAID ==
--- NOTE | 2019-05-26 18:52 | ER Document Report ---
ED GI/ - General Chief Complaint: Constipation Stated Complaint: ABDOMINAL PAIN Time Seen by Provider: 05/26/19 18:42 Primary Care Provider: UHSAM PEDRAZA MD [Primary Care Provider] - Follow up as needed Mode of Arrival: Ambulatory Information source: Patient Notes: 34-year-old male presented to ED for complaint of generalized abdominal pain. He states he was here couple days ago with left lower quadrant abdominal pain and the provider gave him laxatives. He states he did take the laxatives and felt better had a female but now today he is having abdominal pain and gas again. He states he took the laxative this morning and he had a little bit of liquid stool but no real bowel movement. He states the pain sometimes goes up into his chest makes him feel like he is having heartburn. He is alert oriented respirations regular nonlabored speaking in full sentences. TRAVEL OUTSIDE OF THE [place] IN LAST 30 DAYS: No - HPI Patient complains to provider of: Abdominal pain, Other Onset: Last week Timing/Duration: Intermittent Quality of pain: Burning, Sharp Severity at maximum: Moderate Severity in ED: Moderate Pain Level: 3 Location: Epigastric - Generalized Associated symptoms: Constipation Exacerbated by: Denies Relieved by: Denies Similar symptoms previously: Yes Recently seen / treated by doctor: Yes - Related Data Allergies/Adverse Reactions: No Known Allergies Allergy (Verified 05/26/19 18:27) Past Medical History - General Information source: Patient - Social History Smoking Status: Current Every Day Smoker Cigarette use (# per day): Yes - Pack per day Chew tobacco use (# tins/day): No Smoking Education Provided: Yes - 4 minutes Frequency of alcohol use: Heavy - 3 or more beer a day Drug Abuse: None Lives with: Family Family History: Reviewed & Not Pertinent Patient has suicidal ideation: No Patient has homicidal ideation: No Renal/ Medical History: Denies: Hx Peritoneal Dialysis - Immunizations Immunizations up to date: Yes Hx Diphtheria, Pertussis, Tetanus Vaccination: Yes Physical Exam - Vital signs Vitals: Temp Pulse Resp BP Pulse Ox 98.8 F 85 16 150/97 H 99 05/26/19 18:17 05/26/19 18:17 05/26/19 18:17 05/26/19 18:17 05/26/19 18:17 Interpretation: Normal - General General appearance: Appears well, Alert - HEENT Head: Normocephalic, Atraumatic Eyes: Normal Pupils: PERRL - Respiratory Respiratory status: No respiratory distress Chest status: Nontender Breath sounds: Normal Chest palpation: Normal - Cardiovascular Rhythm: Regular Heart sounds: Normal auscultation Murmur: No - Abdominal Inspection: Normal Distension: No distension Bowel sounds: Hyperactive Tenderness: Tender - Generalized Organomegaly: No organomegaly - Back Back: Normal, Nontender - Extremities General upper extremity: Normal inspection, Nontender, Normal color, Normal ROM, Normal temperature General lower extremity: Normal inspection, Nontender, Normal color, Normal ROM, Normal temperature, Normal weight bearing. No: Nidia's sign - Neurological Neuro grossly intact: Yes Cognition: Normal Orientation: AAOx4 Shantanu Coma Scale Eye Opening: Spontaneous Shantanu Coma Scale Verbal: Oriented Shantanu Coma Scale Motor: Obeys Commands Maxwell Coma Scale Total: 15 Speech: Normal Motor strength normal: LUE, RUE, LLE, RLE Sensory: Normal - Psychological Associated symptoms: Normal affect, Normal mood - Skin Skin Temperature: Warm Skin Moisture: Dry Skin Color: Normal Course - Re-evaluation Re-evalutation: 05/26/19 20:14 Discussed labs and x-ray with patient and written report given to patient to follow-up with GI. Patient states he has a GI appointment tomorrow for his abdominal pain and constipation. Patient was instructed to please be sure to discuss his alcohol intake and his liver enzymes with his GI specialist tomorrow. Patient verbalized understanding and agreement with this plan. He states he will be sure to keep his appointment tomorrow. I have instructed him on increasing fluid intake and activity to help with his constipation. Patient was discharged home. - Vital Signs Vital signs: Temp Pulse Resp BP Pulse Ox 98.3 F 82 15 147/90 H 95 05/26/19 20:28 05/26/19 20:28 05/26/19 20:28 05/26/19 20:28 05/26/19 20:28 - Laboratory Result Diagrams: 05/26/19 18:36 05/26/19 18:36 Laboratory results interpreted by me: 05/26/19 05/26/19 18:36 18:36 Hgb 13.1 L MCV 73 L MCH 25.4 L RDW 15.4 H [place] % (Auto) 13.4 H Sodium 132.0 L AST 257 H ALT 193 H Total Protein 8.7 H - Diagnostic Test Radiology reviewed: Image reviewed, Reports reviewed Discharge - Discharge Clinical Impression: Elevated liver enzymes Abdominal pain Qualifiers: Abdominal location: generalized Qualified Code(s): R10.84 - Generalized abdominal pain Condition: Stable Disposition: HOME, SELF-CARE Additional Instructions: ABDOMINAL PAIN: There are many causes of abdominal pain. Pain can mean a serious problem requiring surgery (such as appendicitis). It can also be an innocent problem that goes away on its own (such as a viral infection). Often, time must pass to determine the cause of pain. The physician does not feel that hospitalization is necessary, at present. Things may change within the next 24 hours. Call the doctor or come back for re- examination if any problems occur, such as: (1) Pain that becomes more severe, steady, or becomes concentrated in one specific area. Also, pain that is more severe with movement or coughing. (2) Vomiting that persists or becomes more frequent. (3) Blood in the vomitus, urine, or bowel movements. Blood in the stool may have a tarry or black appearance. (4) Shaking chills or fever greater than 100 degrees F. (5) The abdomen becomes more distended or swollen. (6) Bowel movements cease. (7) Failure to improve as expected. Please take lab results and x-ray results with you to your appointment in the morning. Please discuss your alcohol intake and your liver enzymes with your GI specialist. Please also discuss your blood pressure with the specialist. FOLLOW-UP CARE: If you have been referred to a physician for follow-up care, call the physicians office for an appointment as you were instructed or within the next two days. If you experience worsening or a significant change in your symptoms, notify the physician immediately or return to the Emergency Department at any time for re-evaluation. Forms: Elevated Blood Pressure, Smoking Cessation Education Referrals: HUSAM PEDRAZA MD [Primary Care Provider] - Follow up as needed
[2019-05-26 18:54] LABS: ABSOLUTE BASOPHILS # (AUTO) 0.1 10^3/uL (0.0-0.2); ABSOLUTE EOSINOPHILS # (AUTO) 0.3 10^3/uL (0.0-0.6); ABSOLUTE LYMPHOCYTES (AUTO) 1.9 10^3/uL (0.5-4.7); ABSOLUTE MONOCYTES (AUTO) 0.9 10^3/uL (0.1-1.4); ABSOLUTE NEUT (AUTO) 3.5 10^3/uL (1.7-8.2); EOSINOPHILS % (AUTO) 4.6 % (0-6); HEMATOCRIT 37.9 % (37.9-51.0); HEMOGLOBIN 13.1 g/dL (13.5-17.0); LYMPHOCYTES % (AUTO) 29.1 % (13-45); MEAN CORPUSCULAR HEMOGLOBIN 25.4 pg (27.0-33.4); MEAN CORPUSCULAR HGB CONC 34.5 g/dL (32.0-36.0); MEAN CORPUSCULAR VOLUME 73 fl (80-97); MONOCYTES % (AUTO) 13.4 % (3-13); PLATELET COUNT 238 10^3/uL (150-450); RED BLOOD COUNT 5.15 10^6/uL (4.35-5.55); RED CELL DISTRIBUTION WIDTH 15.4 % (11.5-14.0); SEGMENTED NEUTROPHILS % (AUTO) 51.9 % (42-78); TOTAL CELLS COUNTED % (AUTO) 100 %; WHITE BLOOD COUNT 6.7 10^3/uL (4.0-10.5)
[2019-05-26 19:14] LABS: ALBUMIN 4.6 g/dL (3.5-5.0); ALKALINE PHOSPHATASE 106 U/L (38-126); ANION GAP 9 (5-19); ASPARTATE AMINO TRANSFERASE 257 U/L (17-59); BILIRUBIN,DIRECT 0.3 mg/dL (0.0-0.4); BILIRUBIN,TOTAL 1.1 mg/dL (0.2-1.3); BLOOD UREA NITROGEN 9 mg/dL (7-20); CARBON DIOXIDE 24 mmol/L (22-30); CHLORIDE 99 mmol/L (98-107); GLUCOSE 102 mg/dL (75-110); POTASSIUM 3.8 mmol/L (3.6-5.0); TOTAL PROTEIN 8.7 g/dL (6.3-8.2)
[2019-05-26 19:18] LABS: APPEARANCE,URINE CLEAR; BILIRUBIN,URINE NEGATIVE (NEGATIVE); COLOR,URINE STRAW; GLUCOSE, URINE NEGATIVE (NEGATIVE); KETONES,URINE NEGATIVE (NEGATIVE); LEUKOCYTE ESTERASE,URINE NEGATIVE (NEGATIVE); NITRITE,URINE NEGATIVE (NEGATIVE); PROTEIN,URINE NEGATIVE (NEGATIVE); URINE SPECIFIC GRAVITY 1.001; UROBILINOGEN,URINE NEGATIVE mg/dL (<2.0)
--- NOTE | 2019-05-26 19:31 | RADIOLOGY REPORT (SQ) ---
EXAM DESCRIPTION: ACUTE ABDOMEN SERIES IMAGES COMPLETED DATE/TIME: 05/26/2019 7:09 pm REASON FOR STUDY: Abdominal pain COMPARISON: 05/24/2019 NUMBER OF VIEWS: Three views. TECHNIQUE: Frontal chest, supine abdomen and upright/decubitus abdomen radiographic images acquired. LIMITATIONS: None. FINDINGS: CHEST: Lungs clear of infiltrates. FREE AIR: None. No abnormal gas collections. BOWEL GAS PATTERN: Nonobstructive pattern. No dilated loops or air fluid levels. CALCIFICATIONS: No suspicious calcifications. HARDWARE: None in the abdomen. SOFT TISSUES: No gross mass or suggestion of organomegaly. BONES: No acute fracture. No worrisome bone lesions. OTHER: No other significant finding. IMPRESSION: NO RADIOGRAPHIC EVIDENCE FOR ACUTE ABDOMINAL DISEASE. TECHNICAL DOCUMENTATION: JOB ID: [id number] 2010 [employer]- All Rights Reserved Reading location - IP/workstation name: [email or web address]
[2019-05-26 20:29] VITALS: BP 147/90
== END 2019-05-26 20:45 | disposition home or self-care (01) ==
LOC: ER 18:13
DX: R74.8 Abnormal levels of other serum enzymes (principal); R10.84 Generalized abdominal pain; K59.00 Constipation, unspecified; F17.210 Nicotine dependence, cigarettes, uncomplicated
CPT/HCPCS: 36415; 74022; 80053; 81001; 83690; 85025; 99284; 99406

== ENCOUNTER 2019-06-22 00:54 | Emergency (ER) | payer MEDICAID ==
[2019-06-22 01:29] LABS: TOTAL CELLS COUNTED % (AUTO) 100 %
[2019-06-22 01:30] LABS: APPEARANCE,URINE CLEAR; BILIRUBIN,URINE NEGATIVE (NEGATIVE); COLOR,URINE COLORLESS; GLUCOSE, URINE NEGATIVE (NEGATIVE); KETONES,URINE NEGATIVE (NEGATIVE); LEUKOCYTE ESTERASE,URINE NEGATIVE (NEGATIVE); NITRITE,URINE NEGATIVE (NEGATIVE); PROTEIN,URINE NEGATIVE (NEGATIVE); URINE SPECIFIC GRAVITY 1.001; UROBILINOGEN,URINE NEGATIVE mg/dL (<2.0)
[2019-06-22 01:39] LABS: ABSOLUTE BASOPHILS # (AUTO) 0.1 10^3/uL (0.0-0.2); ABSOLUTE EOSINOPHILS # (AUTO) 0.3 10^3/uL (0.0-0.6); ABSOLUTE LYMPHOCYTES (AUTO) 2.9 10^3/uL (0.5-4.7); ABSOLUTE MONOCYTES (AUTO) 1.1 10^3/uL (0.1-1.4); ABSOLUTE NEUT (AUTO) 5.8 10^3/uL (1.7-8.2); BASOPHILS % (AUTO) 0.9 % (0-2); EOSINOPHILS % (AUTO) 2.9 % (0-6); HEMATOCRIT 38.2 % (37.9-51.0); HEMOGLOBIN 12.5 g/dL (13.5-17.0); MEAN CORPUSCULAR HEMOGLOBIN 24.4 pg (27.0-33.4); MEAN CORPUSCULAR HGB CONC 32.9 g/dL (32.0-36.0); MEAN CORPUSCULAR VOLUME 74 fl (80-97); PLATELET COUNT 440 10^3/uL (150-450); RED BLOOD COUNT 5.13 10^6/uL (4.35-5.55); RED CELL DISTRIBUTION WIDTH 15.2 % (11.5-14.0); SEGMENTED NEUTROPHILS % (AUTO) 57.2 % (42-78); WHITE BLOOD COUNT 10.2 10^3/uL (4.0-10.5)
[2019-06-22 01:45] LABS: ALBUMIN 4.4 g/dL (3.5-5.0); ALKALINE PHOSPHATASE 127 U/L (38-126); ANION GAP 11 (5-19); ASPARTATE AMINO TRANSFERASE 35 U/L (17-59); BILIRUBIN,TOTAL 0.5 mg/dL (0.2-1.3); BLOOD UREA NITROGEN 7 mg/dL (7-20); CALCIUM 9.8 mg/dL (8.4-10.2); CARBON DIOXIDE 26 mmol/L (22-30); CHLORIDE 99 mmol/L (98-107); GLUCOSE 113 mg/dL (75-110); POTASSIUM 4.2 mmol/L (3.6-5.0); TOTAL PROTEIN 8.3 g/dL (6.3-8.2)
[2019-06-22 02:55] VITALS: BP 134/84
--- NOTE | 2019-06-22 05:01 | ER Document Report ---
Entered by CATHY BOWLES SCRIBE 06/22/19 0235 Acting as scribe for:SHANIKA SANTOS IV, MD ED GI/ - General Chief Complaint: Abdominal Pain Stated Complaint: ABDOMINAL PAIN/ALCOHOL DETOX Primary Care Provider: HUSAM PEDRAZA MD [Primary Care Provider] - Follow up as needed Mode of Arrival: Ambulatory Information source: Patient Notes: This 34 year old male patient presents to the ED today with complaints of generalized abdominal pain and constipation for the past x1 month. Patient states that when he does have a bowel movement, the stool is hard and either brown or green in color. He reports that he was seen for similar symptoms on 05/26/2019 and that his liver enzymes were elevated due to heavy ETOH use. He was discharged with instructions to follow up with a office manager receptionist who advised him to stop drinking x1 month ago. Patient admits that he has been x24 days sober as of today without the assistance of AA meetings. He reports that he used to drink beer, but now he only drinks body armor sports drinks, coffee, and water. He notes that he was instructed to return to the ED if his abdominal discomfort persisted despite ETOH cessation, so he decided to come tonight. Denies fever, nausea, or vomiting. TRAVEL OUTSIDE OF THE [place] IN LAST 30 DAYS: No - Related Data Allergies/Adverse Reactions: No Known Allergies Allergy (Verified 06/22/19 01:03) Past Medical History - General Information source: Patient - Social History Smoking Status: Current Every Day Smoker Cigarette use (# per day): Yes Chew tobacco use (# tins/day): No Smoking Education Provided: No Frequency of alcohol use: None Drug Abuse: None Family History: Reviewed & Not Pertinent Patient has suicidal ideation: No Patient has homicidal ideation: No - Immunizations Immunizations up to date: Yes Hx Diphtheria, Pertussis, Tetanus Vaccination: Yes Review of Systems - Review of Systems Constitutional: See HPI. denies: Fever EENT: No symptoms reported Cardiovascular: No symptoms reported Respiratory: No symptoms reported Gastrointestinal: See HPI, Abdominal pain, Constipation. denies: Nausea, Vomiting Genitourinary: No symptoms reported Male Genitourinary: No symptoms reported Musculoskeletal: No symptoms reported Skin: No symptoms reported Hematologic/Lymphatic: No symptoms reported Neurological/Psychological: No symptoms reported -: Yes All other systems reviewed and negative Physical Exam - Vital signs Vitals: Temp Pulse Resp BP Pulse Ox 98.1 F 85 16 129/78 H 100 06/22/19 01:04 06/22/19 01:04 06/22/19 01:04 06/22/19 01:04 06/22/19 01:04 - General General appearance: Appears well, Alert In distress: None - HEENT Head: Normocephalic, Atraumatic Eyes: Normal Pupils: PERRL - Respiratory Respiratory status: No respiratory distress Chest status: Nontender Breath sounds: Normal Chest palpation: Normal - Cardiovascular Rhythm: Regular Heart sounds: Normal auscultation Murmur: No Friction rub: No Gallop: None auscultated - Abdominal Inspection: Normal Distension: No distension Bowel sounds: Normal Tenderness: Nontender - Abdomen soft Organomegaly: No organomegaly - Back Back: Normal, Nontender - Extremities General upper extremity: Normal inspection General lower extremity: Normal inspection - Neurological Neuro grossly intact: Yes Orientation: AAOx4 - Psychological Associated symptoms: Normal affect, Normal mood - Skin Skin Temperature: Warm Skin Moisture: Dry Skin Color: Normal Course - Re-evaluation Re-evalutation: 06/22/19 02:40 Results of ED MSE discussed with patient. All questions were answered. Patient was very pleased to find out that his liver enzymes have improved. This MD discussed use of Metamucil fiber capsules with patient to help with constipat ion. Emergency signs and symptoms reasons to return to the emergency department discussed with patient. - Vital Signs Vital signs: Temp Pulse Resp BP Pulse Ox 98.3 F 86 18 134/84 H 99 06/22/19 02:53 06/22/19 02:53 06/22/19 02:53 06/22/19 02:53 06/22/19 02:53 - Laboratory Result Diagrams: 06/22/19 01:14 06/22/19 01:14 Laboratory results interpreted by me: 06/22/19 06/22/19 01:14 01:14 Hgb 12.5 L MCV 74 L MCH 24.4 L RDW 15.2 H Sodium 135.5 L Glucose 113 H Alkaline Phosphatase 127 H Total Protein 8.3 H Discharge - Discharge Clinical Impression: Abstinence from alcohol Constipation Qualifiers: Constipation type: unspecified constipation type Qualified Code(s): K59.00 - Constipation, unspecified Condition: Good Disposition: HOME, SELF-CARE Additional Instructions: Return to the Emergency Department without delay if any worse. You are doing an excellent job of taking care of yourself by staying away from alcohol. Keep up the good work. You can use generic brand Metamucil capsules as directed to help with constipation. HOME CARE INSTRUCTIONS & INFORMATION: Thank you for choosing us for your medical needs. We hope you're satisfied with the care you received. After you leave, you must properly care for your problem and, at the same time, observe its progress. Any condition can change. Some illnesses can change rapidly over hours or days. If your condition worsens, return to the Emergency Department or see your physician promptly. ABOUT YOUR X-RAYS AND EKG'S: If you had an EKG or X-rays taken, they have been read by the Emergency Physician. The X-rays and EKG's will also be read by a Radiologist or Overnight Cashier within 24 hours. If discrepancies are noted, you will be notified by telephone. Please be certain the ED has a correct telephone number & address where you can be reached. Also, realize that some fractures or abnormalities do not show up on initial X-rays. If your symptoms continue, see your physician. ABOUT YOUR LABORATORY TEST: If you had laboratory tests, the results have been reviewed by the Emergency Physician. Some test results (for example cultures) may not be available for several days. You will be contacted if any test result shows you need additional treatment. Please be certain the ED has a correct telephone number and address where you can be reached. ABOUT YOUR MEDICATIONS: You will receive instructions on how to take your medicine on the prescription label you receive. Additional information may be provided by the Pharmacy. If you have questions afterwards, call the ED for clarification or further instructions. Some prescribed medications may cause drowsiness. Do not perform tasks such as driving a car or operating machinery without consulting your Pharmacist. If you feel you need a refill of pain medication, your condition will need re-evaluation. Please do not call for a refill of any medication. ABOUT YOUR SIGNATURE: Signature of this document acknowledges to followin. Understanding that you received emergency treatment and that you may be released before al medical problems are known or treated. Please be certain the ED has a correct phone number & address where you can be reached. 2. Acknowledgement that you will arrange for follow-up care as recommended. 3. Authorization for the Emergency Physician to provide information to your follow-up Physician in order to maximize your care. AT ANY TIME, IF YOUR SYMPTOMS CHANGE SIGNIFICANTLY OR WORSEN OR YOU DEVELOP NEW SYMPTOMS, RETURN TO THE EMERGENCY DEPARTMENT IMMEDIATELY FOR RE-EVALUATION. OUR GOAL IS TO PROVIDE EXCELLENT MEDICAL CARE! WE HOPE THAT WE HAVE MET YOUR EXPECTATIONS DURING YOUR EMERGENCY DEPARTMENT VISIT AND THAT YOU FEEL YOU HAVE RECEIVED EXCELLENT CARE! Constipation Constipation is a common problem. It is especially likely as you get older. Constipation is a common cause of abdominal pain, but sometimes causes no symptoms at all. Causes of constipation include certain medications, dehydration, diets, inactivity, and low-fiber intake. Rarely, it can be a symptom of underlying disease. The physician has evaluated you for this. Avoid constipation by eating a diet high in fiber, fruits, and vegetables. Drink plenty of liquids. Get regular exercise. If possible, avoid constipating medicines like narcotic pain medication. Some vitamin tablets can cause constipation. Stool softeners may be needed for difficult cases. An excellent stool softener is Konsyl which is available at [employer], [employer]. Just add a teaspoon to a glass of pineapple or orange juice daily or twice a day if needed. Laxatives are useful for occasional constipation. You should use them only when necessary. Too-frequent use can make your bowels dependent on them. Some over the counter laxatives available without prescription are: Milk of Magnesia, 1-2 tablespoons twice a day Dulcolax, 5 mg pill or 10 mg suppository. Citrate of Magnesia, 4-5 ounces a day for a day or two For acute constipation, Fleet's Enemas and Dulcolax suppositories are helpful. Chronic, long goods drier use of laxatives or enemas is not a good idea. Your bowel may become dependant on them. You do not need to have a bowel movement every day. Many people do fine with a bowel movement every three or four days. You should call your doctor or return for re-evaluation if you pass blood in the stool, or if you develop fever or increasing abdominal pain. Referrals: HUSAM PEDRAZA MD [Primary Care Provider] - Follow up as needed I personally performed the services described in the documentation, reviewed and edited the documentation which was dictated to the scribe in my presence, and it accurately records my words and actions.
== END 2019-06-22 02:56 | disposition home or self-care (01) ==
LOC: ER 00:54
DX: K59.00 Constipation, unspecified (principal); R10.84 Generalized abdominal pain; F17.210 Nicotine dependence, cigarettes, uncomplicated
CPT/HCPCS: 36415; 80053; 81001; 83690; 85025; 99284

== ENCOUNTER 2019-07-02 23:40 | Emergency (ER) | payer MEDICAID ==
--- NOTE | 2019-07-03 02:38 | ER Document Report ---
ED Headache - General Chief Complaint: Headache Stated Complaint: HEAD PAIN,BACK PAIN,ABDOMINAL PAIN Time Seen by Provider: 07/03/19 02:25 Primary Care Provider: HUSAM PEDRAZA MD [Primary Care Provider] - Follow up as needed Notes: This 34-year-old male presents to the emergency department with a one-week history of intermittent headaches. He states that he is having frontal and posterior headaches which are severe in nature. He states he played football in high school and had a lot of head injuries at that time. He denies neurologic symptoms or weakness loss of balance or dizziness. He denies nausea and vomiting associated syncope. He has been using Tylenol for his headaches. He also notes that he had elevated liver enzymes associated with alcohol use. He has been alcohol free for approximately 1 month. States that he saw his primary doctor a week ago and his liver enzymes had improved. Presently he rates his headache a 6/10. TRAVEL OUTSIDE OF THE [place] IN LAST 30 DAYS: No - Related Data Allergies/Adverse Reactions: No Known Allergies Allergy (Verified 07/02/19 23:57) Past Medical History - Social History Smoking Status: Current Every Day Smoker Frequency of alcohol use: None Drug Abuse: None Family History: Reviewed & Not Pertinent Patient has homicidal ideation: No Renal/ Medical History: Denies: Hx Peritoneal Dialysis - Immunizations Immunizations up to date: Yes Hx Diphtheria, Pertussis, Tetanus Vaccination: Yes Review of Systems - Review of Systems Notes: Constitutional: Negative for fever. HENT: Negative for sore throat. Eyes: Negative for visual changes. Cardiovascular: Negative for chest pain. Respiratory: Negative for shortness of breath. Gastrointestinal: Negative for abdominal pain, vomiting or diarrhea. Genitourinary: Negative for dysuria. Musculoskeletal: Negative for back pain. Skin: Negative for rash. Neurological:+ headaches, no weakness or numbness. 10 point ROS negative except as marked above and in HPI. Physical Exam - Vital signs Vitals: Temp 98.8 F 07/02/19 23:58 - Notes Notes: PHYSICAL EXAMINATION: Physical Exam: General: Well-nourished well-developed 34-year-old man in no acute distress HEENT: NC/AT, pupils equal round and reactive to light, MM moist,nares clear, oropharynx clear, airway patent Neck: supple, no adenopathy, no masses. Good range of motion Lungs: clear, no wheezing, no rales no rhonchi CVS: Regular rate and rhythm no murmur gallop or rub Abdomen: Soft, active, nontender, no masses, no hepatosplenomegaly Ext: No edema, clubbing or cyanosis. Neuro: Alert and responsive, moving all 4 extremities on command, cranial nerves intact, no focal findings Skin: Intact no open lesions, no rash PSYCH: Normal mood, normal affect. Course - Vital Signs Vital signs: Temp Pulse Resp BP Pulse Ox 98.8 F 07/02/19 23:58 - Diagnostic Test Radiology reviewed: Image reviewed, Reports reviewed - CT head: Noncontrast, no acute findings of intracranial pathology. Discharge - Discharge Clinical Impression: Headache Qualifiers: Headache type: unspecified Headache chronicity pattern: episodic headache Intractability: not intractable Qualified Code(s): R51 - Headache Condition: Good Disposition: HOME, SELF-CARE Instructions: Headache ([facility]) Additional Instructions: You are seen in the emergency department with a headache this morning. Naprosyn, you may take 1 tablet every 12 hours as needed for pain. You may return to the emergency department if his symptoms are worsening or if you have other concerns HOME CARE INSTRUCTIONS & INFORMATION: Thank you for choosing us for your medical needs. We hope you're satisfied with the care you received. After you leave, you must properly care for your problem and, at the same time, observe its progress. Any condition can change. Some illnesses can change rapidly over hours or days. If your condition worsens, return to the Emergency Department or see your physician promptly. ABOUT YOUR X-RAYS AND EKG'S: If you had an EKG or X-rays taken, they have been read by the Emergency Physician. The X-rays and EKG's will also be read by a Radiologist or Deadener within 24 hours. If discrepancies are noted, you will be notified by telephone. Please be certain the ED has a correct telephone number & address where you can be reached. Also, realize that some fractures or abnormalities do not show up on initial X-rays. If your symptoms continue, see your physician. ABOUT YOUR LABORATORY TEST: If you had laboratory tests, the results have been reviewed by the Emergency Physician. Some test results (for example cultures) may not be available for several days. You will be contacted if any test result shows you need additional treatment. Please be certain the ED has a correct telephone number and address where you can be reached. ABOUT YOUR MEDICATIONS: You will receive instructions on how to take your medicine on the prescription label you receive. Additional information may be provided by the Pharmacy. If you have questions afterwards, call the ED for clarification or further instructions. Some prescribed medications may cause drowsiness. Do not perform tasks such as driving a car or operating machinery without consulting your Pharmacist. If you feel you need a refill of pain medication, your condition will need re-evaluation. Please do not call for a refill of any medication. ABOUT YOUR SIGNATURE: Signature of this document acknowledges to followin. Understanding that you received emergency treatment and that you may be released before al medical problems are known or treated. Please be certain the ED has a correct phone number & address where you can be reached. 2. Acknowledgement that you will arrange for follow-up care as recommended. 3. Authorization for the Emergency Physician to provide information to your follow-up Physician in order to maximize your care. AT ANY TIME, IF YOUR SYMPTOMS CHANGE SIGNIFICANTLY OR WORSEN OR YOU DEVELOP NEW SYMPTOMS, RETURN TO THE EMERGENCY DEPARTMENT IMMEDIATELY FOR RE-EVALUATION. OUR GOAL IS TO PROVIDE EXCELLENT MEDICAL CARE! WE HOPE THAT WE HAVE MET YOUR EXPECTATIONS DURING YOUR EMERGENCY DEPARTMENT VISIT AND THAT YOU FEEL YOU HAVE RECEIVED EXCELLENT CARE! Prescriptions: Naproxen [Naprosyn] 500 mg PO BID #20 tablet Referrals: HUSAM PEDRAZA MD [Primary Care Provider] - Follow up as needed
--- NOTE | 2019-07-03 03:41 | RADIOLOGY REPORT (SQ) ---
CLINICAL HISTORY: Headache. PT CONCERNED ABOUT CTE. HAS HX OF HEADINJURIES FROM FOOTBALL COMPARISON: 03/16/2015. TECHNIQUE: CT HEAD WITHOUT IV CONTRAST on 07/03/2019 2:37 AM CDT This exam was performed according to our departmental dose-optimization program, which includes automated exposure control, adjustment of the mA and/or kV according to patient size and/or use of iterative reconstruction technique. FINDINGS: There is no acute hemorrhage, mass effect or midline shift. Mancera-white differentiation is preserved. There is no hydrocephalus. There is no significant volume loss for age. The calvarium is intact. Orbits and globes are unremarkable. The paranasal sinuses are clear. Mastoid air cells are clear. IMPRESSION: No acute intracranial findings.
[2019-07-03 04:08] VITALS: BP 130/82
== END 2019-07-03 04:08 | disposition home or self-care (01) ==
LOC: ER 23:40
DX: R51 Headache (principal); F17.200 Nicotine dependence, unspecified, uncomplicated; Z87.828 Personal history of other (healed) physical injury and trauma
CPT/HCPCS: 70450; 99284

== ENCOUNTER 2019-07-10 23:33 | Emergency (ER) | payer MEDICAID ==
[2019-07-11 00:32] LABS: ABSOLUTE BASOPHILS # (AUTO) 0.1 10^3/uL (0.0-0.2); ABSOLUTE EOSINOPHILS # (AUTO) 0.6 10^3/uL (0.0-0.6); ABSOLUTE LYMPHOCYTES (AUTO) 4.3 10^3/uL (0.5-4.7); ABSOLUTE MONOCYTES (AUTO) 1.1 10^3/uL (0.1-1.4); ABSOLUTE NEUT (AUTO) 5.5 10^3/uL (1.7-8.2); BASOPHILS % (AUTO) 1.1 % (0-2); EOSINOPHILS % (AUTO) 4.9 % (0-6); HEMOGLOBIN 11.9 g/dL (13.5-17.0); LYMPHOCYTES % (AUTO) 36.7 % (13-45); MEAN CORPUSCULAR HEMOGLOBIN 23.8 pg (27.0-33.4); MEAN CORPUSCULAR HGB CONC 32.1 g/dL (32.0-36.0); MEAN CORPUSCULAR VOLUME 74 fl (80-97); MONOCYTES % (AUTO) 9.6 % (3-13); PLATELET COUNT 426 10^3/uL (150-450); RED BLOOD COUNT 4.99 10^6/uL (4.35-5.55); RED CELL DISTRIBUTION WIDTH 15.1 % (11.5-14.0); SEGMENTED NEUTROPHILS % (AUTO) 47.7 % (42-78); TOTAL CELLS COUNTED % (AUTO) 100 %; WHITE BLOOD COUNT 11.6 10^3/uL (4.0-10.5)
--- NOTE | 2019-07-11 00:53 | RADIOLOGY REPORT (SQ) ---
CLINICAL INDICATION: chest pain. TECHNIQUE: PA and lateral views were obtained of the chest COMPARISON: April 25, 2018. FINDINGS: The cardiomediastinal silhouette is normal. The lungs are grossly clear. No evidence of effusion or pneumothorax. Visualized bones are unremarkable. . IMPRESSION: No evidence of active intrathoracic disease .
[2019-07-11 00:57] LABS: ALBUMIN 4.3 g/dL (3.5-5.0); ALKALINE PHOSPHATASE 102 U/L (38-126); ANION GAP 9 (5-19); ASPARTATE AMINO TRANSFERASE 36 U/L (17-59); BILIRUBIN,DIRECT 0.1 mg/dL (0.0-0.4); BILIRUBIN,TOTAL 0.6 mg/dL (0.2-1.3); BLOOD UREA NITROGEN 8 mg/dL (7-20); CARBON DIOXIDE 24 mmol/L (22-30); CHLORIDE 103 mmol/L (98-107); CREATINE KINASE 108 U/L (55-170); GLUCOSE 111 mg/dL (75-110); TOTAL PROTEIN 8.4 g/dL (6.3-8.2)
[2019-07-11 01:08] LABS: CREATINE KINASE MB 0.29 ng/mL (<4.55)
[2019-07-11 01:09] LABS: TROPONIN I < 0.012 ng/mL
--- NOTE | 2019-07-11 01:39 | ER Document Report ---
ED General - General Chief Complaint: Epigastric Pain Stated Complaint: CHEST DISCOMFORT/NECK SWELLING Time Seen by Provider: 07/11/19 01:32 Primary Care Provider: HUSAM PEDRAZA MD [Primary Care Provider] - Follow up as needed Mode of Arrival: Ambulatory Information source: Patient Notes: 34-year-old male patient presenting to the emergency department with concern for left-sided chest pain, shoulder pain and back pain. Patient reports that he has had multiple work-ups for similar symptoms. He reports that he is starting to have anxiety about his health. He denies any specific injury to this area but does report that he sleeps on this side and many times sits up on that side using his computer. He states the pain is worse with movement. He denies any s hortness of breath. He has no cardiac history. He does report a history of alcohol abuse but states he quit drinking several months ago when he was told that he had elevated liver enzymes. He is followed by gastroenterology for work-up is for his recurrent epigastric and chest pain. TRAVEL OUTSIDE OF THE [place] IN LAST 30 DAYS: No - Related Data Allergies/Adverse Reactions: No Known Allergies Allergy (Verified 07/02/19 23:57) Past Medical History - General Information source: Patient - Social History Smoking Status: Current Every Day Smoker Frequency of alcohol use: None Drug Abuse: None Family History: Reviewed & Not Pertinent Patient has homicidal ideation: No Renal/ Medical History: Denies: Hx Peritoneal Dialysis Surgical Hx: Negative - Immunizations Immunizations up to date: Yes Hx Diphtheria, Pertussis, Tetanus Vaccination: Yes Review of Systems - Review of Systems Constitutional: denies: Chills, Fever Cardiovascular: Chest pain Respiratory: denies: Short of breath Gastrointestinal: denies: Nausea, Vomiting Musculoskeletal: See HPI -: Yes All other systems reviewed and negative Physical Exam - Vital signs Vitals: Temp Pulse Resp BP Pulse Ox 98.8 F 88 12 150/74 H 100 07/10/19 23:42 07/10/19 23:42 07/10/19 23:42 07/10/19 23:42 07/10/19 23:42 - Notes Notes: PHYSICAL EXAMINATION: GENERAL: Well-appearing, well-nourished and in no acute distress. HEAD: Atraumatic, normocephalic. EYES: Pupils equal round and reactive to light, extraocular movements intact, sclera anicteric, conjunctiva are normal. ENT: Nares patent, oropharynx clear without exudates. Moist mucous membranes. NECK: Normal range of motion, supple without lymphadenopathy LUNGS: Breath sounds clear to auscultation bilaterally and equal. No wheezes rales or rhonchi. HEART: Regular rate and rhythm without murmurs ABDOMEN: Soft, nontender, nondistended abdomen. No guarding, no rebound. No masses appreciated. Musculoskeletal: Normal range of motion, no pitting or edema. No cyanosis. Reproducible pain with palpation on the anterior left shoulder, left scapular area and left chest wall. NEUROLOGICAL: Cranial nerves grossly intact. Normal speech, normal gait. Normal sensory, motor exams PSYCH: Normal mood, normal affect. SKIN: Warm, Dry, normal turgor, no rashes or lesions noted. Course - Re-evaluation Re-evalutation: Laboratory 07/11/19 07/11/19 07/11/19 00:02 00:02 00:02 WBC 11.6 H RBC 4.99 Hgb 11.9 L Hct 37.0 L MCV 74 L MCH 23.8 L MCHC 32.1 RDW 15.1 H Plt Count 426 Lymph % (Auto) 36.7 [place] % (Auto) 9.6 Eos % (Auto) 4.9 Baso % (Auto) 1.1 Absolute Neuts (auto) 5.5 Absolute Lymphs (auto) 4.3 Absolute Monos (auto) 1.1 Absolute Eos (auto) 0.6 Absolute Basos (auto) 0.1 Seg Neutrophils % 47.7 Sodium 136.2 L Potassium 4.0 Chloride 103 Carbon Dioxide 24 Anion Gap 9 BUN 8 Creatinine 0.86 Est GFR ( Amer) > 60 Est GFR (MDRD) Non-Af > 60 Glucose 111 H Calcium 10.0 Total Bilirubin 0.6 Direct Bilirubin 0.1 Neonat Total Bilirubin Not Reportable Neonat Direct Bilirubin Not Reportable Neonat Indirect Bili Not Reportable AST 36 ALT 20 Alkaline Phosphatase 102 Creatine Kinase 108 CK-MB (CK-2) 0.29 Troponin I < 0.012 Total Protein 8.4 H Albumin 4.3 Lipase 145.6 07/11/19 03:00 WBC RBC Hgb Hct MCV MCH MCHC RDW Plt Count Lymph % (Auto) [place] % (Auto) Eos % (Auto) Baso % (Auto) Absolute Neuts (auto) Absolute Lymphs (auto) Absolute Monos (auto) Absolute Eos (auto) Absolute Basos (auto) Seg Neutrophils % Sodium Potassium Chloride Carbon Dioxide Anion Gap BUN Creatinine Est GFR ( Amer) Est GFR (MDRD) Non-Af Glucose Calcium Total Bilirubin Direct Bilirubin Neonat Total Bilirubin Neonat Direct Bilirubin Neonat Indirect Bili AST ALT Alkaline Phosphatase Creatine Kinase CK-MB (CK-2) Troponin I < 0.012 Total Protein Albumin Lipase Chest X-Ray 07/10/19 00:00 IMPRESSION: No evidence of active intrathoracic disease . Patient appears well, nontoxic. He has had a negative cardiac work-up here today. He has heart score is 0. His vital signs are reassuring. His pain is reproducible with palpation. Likely musculoskeletal strain. Patient reports he cannot take muscle relaxers as he has had some type of reaction to a muscle relaxer in the past where he became swollen all over. Will recommend that patient take Toradol to see if this will help with his pain. Recommended patient continue following up with gastroenterology as initially planned. - Vital Signs Vital signs: Temp Pulse Resp BP Pulse Ox 98.4 F 81 20 143/68 H 99 07/11/19 04:20 07/11/19 04:20 07/11/19 04:20 07/11/19 04:20 07/11/19 04:20 - Laboratory Result Diagrams: 07/11/19 00:02 07/11/19 00:02 Laboratory results interpreted by me: 07/11/19 07/11/19 00:02 00:02 WBC 11.6 H Hgb 11.9 L Hct 37.0 L MCV 74 L MCH 23.8 L RDW 15.1 H Sodium 136.2 L Glucose 111 H Total Protein 8.4 H - Diagnostic Test Radiology reviewed: Image reviewed, Reports reviewed - EKG Interpretation by Vt EKG shows normal: Sinus rhythm Rate: Normal Rhythm: NSR When compared to previous EKG there are: No significant change Discharge - Discharge Clinical Impression: Chest pain Qualifiers: Chest pain type: unspecified Qualified Code(s): R07.9 - Chest pain, unspecified Back pain Qualifiers: Back pain location: low back pain Chronicity: acute Back pain laterality: unspecified Sciatica presence: without sciatica Qualified Code(s): M54.5 - Low back pain Condition: Stable Disposition: HOME, SELF-CARE Additional Instructions: Your work-up today has been reassuring. Your cardiac enzymes were negative and your EKG was normal. Please keep the follow-up appointments that you have with your frame aligner. We have printed a copy of your labs for his review. Please consider trying to take ibuprofen 600 mg every 6 hours to help with the chest and back pain as I do believe this is musculoskeletal. Return to the emergency department with any new or life-threatening concerns such as difficulty breathing, shortness of breath or worsening chest pain. Referrals: HUSAM PEDRAZA MD [Primary Care Provider] - Follow up as needed
[2019-07-11] MEDS ORDERED: KETOROLAC TROMETHAMINE 60 MG/2 ML SDV IM ONE (02:04)
[2019-07-11 04:20] VITALS: BP 143/68
--- NOTE | 2019-07-11 08:47 | EKG REPORT ---
SEVERITY:- NORMAL ECG - SINUS RHYTHM : Confirmed by: Maria M Gannon MD 11-Jul-2019 08:45:19
== END 2019-07-11 04:20 | disposition home or self-care (01) ==
LOC: ER 23:33
DX: R07.9 Chest pain, unspecified (principal); M54.5 Low back pain; R10.13 Epigastric pain; R22.1 Localized swelling, mass and lump, neck; F17.200 Nicotine dependence, unspecified, uncomplicated
CPT/HCPCS: 93005; 99285; 96372; 36415; 82553; 82550; 83690; 85025; 80053; 84484; 71046; 93010; J1885

== ENCOUNTER 2019-07-16 02:01 | Emergency (ER) | payer MEDICAID ==
[2019-07-16] MEDS ORDERED: FAMOTIDINE 20 MG TABLET PO ONE (03:02)
[2019-07-16] MEDS ORDERED: METOCLOPRAMIDE HCL ORAL SOLN 10 MG/10 ML UDCUP PO ONE (03:02)
[2019-07-16] MEDS ORDERED: LIDOCAINE 2% VISCOUS SOLN 15 ML UDCUP PO ONE (03:02)
[2019-07-16] MEDS ORDERED: MAG HYDROX/AL HYDROX/SIMETH SUSP 30 ML UDCUP PO ONE (03:02)
--- NOTE | 2019-07-16 04:16 | ER Document Report ---
ED General - General Chief Complaint: Abdominal Pain Stated Complaint: SWOLLEN LYMPHNODES Time Seen by Provider: 07/16/19 02:21 Primary Care Provider: HUSAM PEDRAZA MD [Primary Care Provider] - Follow up as needed Mode of Arrival: Ambulatory Information source: Patient TRAVEL OUTSIDE OF THE [place] IN LAST 30 DAYS: No - HPI Onset: Other - over the last several weeks Onset/Duration: Gradual Quality of pain: Burning Severity: Mild Pain Level: 1 Associated symptoms: Other - swollen lymph noded in left side of neck Exacerbated by: Food Relieved by: Denies Similar symptoms previously: Yes Recently seen / treated by doctor: Yes - patient seen in this ER for similar issues on 07/10/19 Notes: 34 year old male with a history of GERD here in the ER for what sounds like several different issues: GERD, transient swelling in his nose, and swollen left sided neck lymph nodes. The patient says he has acid reflux and he is scheduled to follow up with a GI Doctor for further work up and treatment. The patient is not taking any medications for reflux currently. The patient also says he has transient swelling of inside his nose making it difficult to breath through his nose at times. The patient is unsure if he has seasonal allergies or not. Finally, the patient has notice two slightly swollen pea sized lymph node in his left neck for the last several days. The patient says the lymph nodes are not painful but he can tell they are there. The patient denies fevers, chills, swe ats, weight loss. - Related Data Allergies/Adverse Reactions: No Known Allergies Allergy (Verified 07/16/19 02:29) Home Medications: mvi Past Medical History - General Information source: Patient - Social History Smoking Status: Current Every Day Smoker Chew tobacco use (# tins/day): No Frequency of alcohol use: None Drug Abuse: None Family History: Reviewed & Not Pertinent Patient has suicidal ideation: No Patient has homicidal ideation: No Renal/ Medical History: Denies: Hx Peritoneal Dialysis - Immunizations Immunizations up to date: Yes Hx Diphtheria, Pertussis, Tetanus Vaccination: Yes Review of Systems - Review of Systems Constitutional: No symptoms reported EENT: Other - Swollen lymph nodes on left side of neck, transient swelling of inside of nose with trouble breathing through her nose. Cardiovascular: No symptoms reported Respiratory: No symptoms reported Gastrointestinal: Other - acid reflux Genitourinary: No symptoms reported Male Genitourinary: No symptoms reported Musculoskeletal: No symptoms reported Skin: No symptoms reported Hematologic/Lymphatic: No symptoms reported Neurological/Psychological: No symptoms reported -: Yes All other systems reviewed and negative Physical Exam - Vital signs Vitals: Temp Pulse Ox 99.0 F 100 07/16/19 02:24 07/16/19 02:24 - Notes Notes: GENERAL: Well-appearing, well-nourished and in no acute distress. HEAD: Atraumatic, normocephalic. EYES: Pupils equal round and reactive to light, extraocular movements intact, sclera anicteric, conjunctiva are normal. ENT: External ears normal, nares patent, oropharynx clear without exudates. Moist mucous membranes. Two palpable left sided neck lymph nodes (anterior cervical) which are not tender to palpation. NECK: Normal range of motion, supple without lymphadenopathy or JVD. LUNGS: Breath sounds clear to auscultation bilaterally and equal. No wheezes rales or rhonchi. HEART: Regular rate and rhythm without murmurs, rubs or gallops. ABDOMEN: Soft, nontender, normoactive bowel sounds. No guarding, no rebound. No masses appreciated. EXTREMITIES: Normal range of motion, no pitting or edema. No clubbing or cyanosis. NEUROLOGICAL: Cranial nerves II through XII grossly intact. Normal speech, normal gait. PSYCH: Normal mood, normal affect. SKIN: Warm, Dry, normal turgor, no rashes or lesions noted. Course - Re-evaluation Re-evalutation: 07/16/19 04:26 The patient is here for mostly chronic issues (GERD and swollen nasal turbinates per report). Patient told to start using a PPI and he was prescribed Flonase PRN. Patient already has a GI Doctor for follow up. The patient also has two slightly swollen lumph nodes in his left neck but he is afebrile and has no other concerning symptoms. Patient was told to use NSAIDs and to follow up with his PCP to ensure resolution of his swollen lymph nodes. No need for antibiotics since no fevers with his swollen lymph nodes. - Vital Signs Vital signs: Temp Pulse Resp BP Pulse Ox 99.0 F 16 121/91 H 100 07/16/19 02:31 07/16/19 02:25 07/16/19 04:00 07/16/19 04:01 Discharge - Discharge Clinical Impression: Lymph node enlargement GERD (gastroesophageal reflux disease) Qualifiers: Esophagitis presence: without esophagitis Qualified Code(s): K21.9 - Gastro-esophageal reflux disease without esophagitis Condition: Stable Disposition: HOME, SELF-CARE Instructions: Cervical Lymphadenitis ([facility]), Lymphadenopathy ([facility]), Nasal Corticosteroid Inhaler ([facility]), Reflux Disease (GERD) ([facility]) Additional Instructions: Use the prescribed Flonase for nasal congestion and sinus issues. Try an over the counter PPI (Proton Pump Inhibitor) such as Omeprazole for 2 weeks to see if this improved your acid reflux symptoms. Use Ibuprofen for your swollen lymph nodes. Follow up with your primary care doctor if your swollen lymph nodes persist or if you develop fevers with the swollen lymph nodes. Follow up with your GI Doctor as scheduled for your acid reflux symptoms. Prescriptions: Fluticasone Propionate [Flonase Nasal Alkol 50 Mcg/Alkol 16 gm] 1 spray NASL Q12 PRN #1 inhaler PRN Reason: Referrals: HUSAM PEDRAZA MD [Primary Care Provider] - Follow up as needed
[2019-07-16 04:53] VITALS: BP 127/80
== END 2019-07-16 04:51 | disposition home or self-care (01) ==
LOC: ER 02:01
DX: R59.1 Generalized enlarged lymph nodes (principal); K21.9 Gastro-esophageal reflux disease without esophagitis; R10.9 Unspecified abdominal pain; F17.200 Nicotine dependence, unspecified, uncomplicated
CPT/HCPCS: 99283; J3490 ×4

== ENCOUNTER 2019-10-23 21:30 | Emergency (ER) | payer MEDICAID ==
[2019-10-23 21:46] VITALS: BP 119/62
--- NOTE | 2019-10-23 23:32 | ER Document Report ---
ED Medical Screen (RME) - General Chief Complaint: Palpitations Stated Complaint: HEART PALPITATIONS Time Seen by Provider: 10/23/19 23:22 Primary Care Provider: CRISTIAN PEDRAZA MD [Primary Care Provider] - Follow up as needed Mode of Arrival: Ambulatory Information source: Patient Notes: 34-year-old male patient presents emergency department chief complaint of palp itations that began yesterday. He states the palpitations are intermittent, he has never had them prior to yesterday. He denies any chest pain or shortness of breath. He does have a primary care provider, he states his primary care provider has not seen him for the symptoms. He denies any nausea, vomiting, diarrhea. He denies any personal cardiac history. Patient alert, oriented, answering all questions appropriately. Heart sounds S1-S2 present, normal rate, normal rhythm. I have greeted and performed a rapid initial assessment of this patient. A comprehensive ED assessment and evaluation of the patient, analysis of test results and completion of the medical decision making process will be conducted by additional ED providers. I have specifically instructed the patient or family members with the patient to immediately return to any nursing staff should anything change in the patient's condition or with their chief complaint. TRAVEL OUTSIDE OF THE [place] IN LAST 30 DAYS: No - Related Data Allergies/Adverse Reactions: No Known Allergies Allergy (Verified 07/16/19 02:29) Past Medical History - Social History Chew tobacco use (# tins/day): No Frequency of alcohol use: None Drug Abuse: None Renal/ Medical History: Denies: Hx Peritoneal Dialysis - Immunizations Immunizations up to date: Yes Hx Diphtheria, Pertussis, Tetanus Vaccination: Yes Physical Exam - Vital signs Vitals: Temp Pulse Resp BP Pulse Ox 98.6 F 69 18 119/62 100 10/23/19 21:44 10/23/19 21:44 10/23/19 21:44 10/23/19 21:44 10/23/19 21:44 Course - Vital Signs Vital signs: Temp Pulse Resp BP Pulse Ox 98.6 F 69 18 119/62 100 10/23/19 21:44 10/23/19 21:44 10/23/19 21:44 10/23/19 21:44 10/23/19 21:44 Doctor's Discharge - Discharge Referrals: CRISTIAN PEDRAZA MD [Primary Care Provider] - Follow up as needed
--- NOTE | 2019-10-24 00:10 | ER Document Report ---
ED General - General Chief Complaint: Palpitations Stated Complaint: HEART PALPITATIONS Time Seen by Provider: 10/23/19 23:22 Primary Care Provider: CRISTIAN PEDRAZA MD [Primary Care Provider] - Follow up in 3-5 days DAVID RODAS MD [ACTIVE PROVISIONAL STAFF] - Follow up as needed Mode of Arrival: Ambulatory Notes: Patient is a 34-year-old male that comes to the emergency department for chief complaint of palpitations that started yesterday. He states he keeps feeling episodes where he feels like his heart will suddenly start beating rapidly for a couple of seconds and then go back to normal. He denies pain, dizziness, shortness of breath. He states he can feel the palpitations sometimes down in the top of his abdomen, sometimes up at the top of his chest. He can denies that these are painful. He denies any other symptoms although he states that he wants some lymph nodes on the left side of his neck checked out. Patient denies any daily medications. Patient smokes, was a former heavy alcoholic but states he has not had any alcoholic substances in weeks, denies recreational drugs, denies medical history otherwise. He denies any family history except diabetes. TRAVEL OUTSIDE OF THE [place] IN LAST 30 DAYS: No - Related Data Allergies/Adverse Reactions: No Known Allergies Allergy (Verified 07/16/19 02:29) Past Medical History - General Information source: Patient - Social History Smoking Status: Current Every Day Smoker Chew tobacco use (# tins/day): No Smoking Education Provided: Yes - <3 min Frequency of alcohol use: None Drug Abuse: None Lives with: Family Family History: Reviewed & Not Pertinent Renal/ Medical History: Denies: Hx Peritoneal Dialysis Surgical Hx: Negative - Immunizations Immunizations up to date: Yes Hx Diphtheria, Pertussis, Tetanus Vaccination: Yes Review of Systems - Review of Systems Constitutional: No symptoms reported EENT: See HPI Cardiovascular: See HPI Respiratory: No symptoms reported Gastrointestinal: No symptoms reported Genitourinary: No symptoms reported Male Genitourinary: No symptoms reported Musculoskeletal: No symptoms reported Skin: No symptoms reported Hematologic/Lymphatic: No symptoms reported Neurological/Psychological: No symptoms reported Physical Exam - Vital signs Vitals: Temp Pulse Resp BP Pulse Ox 98.6 F 69 18 119/62 100 10/23/19 21:44 10/23/19 21:44 10/23/19 21:44 10/23/19 21:44 10/23/19 21:44 - Notes Notes: GENERAL: Alert, interacts well. No acute distress. HEAD: Normocephalic, atraumatic. EYES: Pupils equal, round, and reactive to light. Extraocular movements intact. ENT: Oral mucosa moist, tongue midline. Oropharynx unremarkable. Airway patent. NECK: Full range of motion. Supple. Trachea midline. Very mild left-sided anterior cervical adenopathy, no submandibular swelling, no tenderness, ot herwise unremarkable. LUNGS: Clear to auscultation bilaterally, no wheezes, rales, or rhonchi. No re spiratory distress. Non-tender chest wall. HEART: Regular rate and rhythm. No murmur ABDOMEN: Soft, non-tender. Non-distended. Bowel sounds present in all 4 quadrants. GENITOURINARY: Deferred EXTREMITIES: Moves all 4 extremities spontaneously. No edema, normal radial and dorsalis pedis pulses bilaterally. No cyanosis. BACK: no cervical, thoracic, lumbar midline tenderness. No saddle anesthesia, n ormal distal neurovascular exam. Moves all extremities in full range of motion. NEUROLOGICAL: Alert and oriented x3. Normal speech. Cranial nerves II through XII grossly intact. Strength 5/5 in all extremities. PSYCH: Normal affect, normal mood. SKIN: Warm, dry, normal turgor. No rashes or lesions noted. Course - Re-evaluation Re-evalutation: On my evaluation patient is asymptomatic. Patient was placed on cardiac monitoring and no concerning findings were noted. EKG unremarkable, chest x-ray unremarkable, laboratory work-up reviewed from triage and unremarkable. Patient does not have any chest pain and has not reported any either. Patient with no shortness of breath, fever, cough. Patient with very mild resolving lymp hadenopathy which patient states is significantly reduced in size compared to initially. No concerning findings. Patient reporting rare palpitations. No associated symptoms. Patient admits to caffeine, nicotine, stress, denies recreational drugs. Overall evaluation is very unremarkable, I discussed reassuring work-up, primary care and cardiology follow-up, and return precautions. Patient states satisfaction, relief, understanding of return precautions. Asymptomatic and well-appearing at time of discharge. - Vital Signs Vital signs: Temp Pulse Resp BP Pulse Ox 98.6 F 69 14 119/62 99 10/23/19 21:44 10/23/19 21:44 10/24/19 02:00 10/23/19 21:44 10/24/19 00:00 - Laboratory Result Diagrams: 10/24/19 00:21 10/24/19 00:21 Laboratory results interpreted by me: 10/24/19 10/24/19 00:21 00:21 Hgb 12.1 L Hct 37.3 L MCV 72 L MCH 23.2 L RDW 15.9 H Carbon Dioxide 21 L Total Protein 8.5 H - EKG Interpretation by Me Additional EKG results interpreted by me: EKG shows sinus rhythm at a rate of 68, QTc of 405, normal axis, no T wave inversions or ST segment changes in consecutive leads. Machine reads as normal. Discharge - Discharge Clinical Impression: Palpitations Condition: Stable Disposition: HOME, SELF-CARE Additional Instructions: Your work-up does not show any concerning findings today. To reduce your palpitations I recommend that you stop smoking, improve sleep, reduce stress, reduce caffeine intake. If symptoms continue follow-up with primary care/cardiology referral listed. Return if you worsen including passing out, chest pain, difficulty breathing, or any other concerning symptoms. Referrals: CRISTIAN PEDRAZA MD [Primary Care Provider] - Follow up in 3-5 days DAVID RODAS MD [ACTIVE PROVISIONAL STAFF] - Follow up as needed
--- NOTE | 2019-10-24 00:26 | RADIOLOGY REPORT (SQ) ---
CHEST X-RAY 1 VIEW on 10/24/2019 at 12:14 AM CLINICAL INDICATION: Palpitations COMPARISON: 07/11/2019 FINDINGS: The lungs are clear. Cardiac, hilar and mediastinal contours are within normal limits. Pulmonary vascularity is within normal limits. No bony abnormality is noted. IMPRESSION: No active disease.
[2019-10-24 00:32] LABS: ABSOLUTE BASOPHILS # (AUTO) 0.1 10^3/uL (0.0-0.2); ABSOLUTE EOSINOPHILS # (AUTO) 0.2 10^3/uL (0.0-0.6); ABSOLUTE MONOCYTES (AUTO) 0.7 10^3/uL (0.1-1.4); ABSOLUTE NEUT (AUTO) 3.6 10^3/uL (1.7-8.2); BASOPHILS % (AUTO) 1.1 % (0-2); EOSINOPHILS % (AUTO) 3.2 % (0-6); HEMATOCRIT 37.3 % (37.9-51.0); HEMOGLOBIN 12.1 g/dL (13.5-17.0); LYMPHOCYTES % (AUTO) 39.4 % (13-45); MEAN CORPUSCULAR HEMOGLOBIN 23.2 pg (27.0-33.4); MEAN CORPUSCULAR HGB CONC 32.4 g/dL (32.0-36.0); MEAN CORPUSCULAR VOLUME 72 fl (80-97); MONOCYTES % (AUTO) 9.4 % (3-13); PLATELET COUNT 388 10^3/uL (150-450); RED BLOOD COUNT 5.21 10^6/uL (4.35-5.55); RED CELL DISTRIBUTION WIDTH 15.9 % (11.5-14.0); SEGMENTED NEUTROPHILS % (AUTO) 46.9 % (42-78); TOTAL CELLS COUNTED % (AUTO) 100 %; WHITE BLOOD COUNT 7.7 10^3/uL (4.0-10.5)
[2019-10-24 00:49] LABS: ALBUMIN 4.7 g/dL (3.5-5.0); ALKALINE PHOSPHATASE 105 U/L (38-126); ANION GAP 12 (5-19); ASPARTATE AMINO TRANSFERASE 24 U/L (17-59); BILIRUBIN,DIRECT 0.2 mg/dL (0.0-0.4); BILIRUBIN,TOTAL 0.8 mg/dL (0.2-1.3); BLOOD UREA NITROGEN 14 mg/dL (7-20); CALCIUM 9.9 mg/dL (8.4-10.2); CARBON DIOXIDE 21 mmol/L (22-30); CHLORIDE 107 mmol/L (98-107); GLUCOSE 101 mg/dL (75-110); TOTAL PROTEIN 8.5 g/dL (6.3-8.2)
--- NOTE | 2019-10-24 08:28 | EKG REPORT ---
SEVERITY:- NORMAL ECG - SINUS RHYTHM : Confirmed by: Michael Vasquez MD 24-Oct-2019 08:27:15
== END 2019-10-24 03:02 | disposition home or self-care (01) ==
LOC: ER 21:30
DX: R00.2 Palpitations (principal); F17.200 Nicotine dependence, unspecified, uncomplicated
CPT/HCPCS: 36415; 71045; 80053; 84443; 85025; 93005; 93010; 99285

== ENCOUNTER 2019-11-05 14:49 | Emergency (ER) | payer MEDICAID ==
--- NOTE | 2019-11-05 15:12 | ER Document Report ---
ED Medical Screen (RME) - General Chief Complaint: Chest Pain Stated Complaint: CHEST PAIN Time Seen by Provider: 11/05/19 15:06 Primary Care Provider: CRISTIAN PEDRAZA MD [Primary Care Provider] - Follow up as needed Mode of Arrival: Ambulatory Information source: Patient Notes: 34-year-old male presented to ED for sudden chest pain while at work. He states he was on the top of the ladder when he felt the chest pain. He states it was on the left side of his chest and he thought at first it was just sharp muscle pain. He states his boss told him to get off the ladder and go to the emergency room. He has had chest pain in the past. The ER doctors have told him that it was muscle pain but if he had a sudden sharp pain that he still needed to come to the emergency room. He states he felt like he was having a lot of pounding and pressure in his chest. When he was seen in the triage he did have an EKG with a heart rate of 59. He states he does smoke a pack a day does not drink or use any illicit drugs. 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 He states he does not have any other medical history except for chest pain. Patient is alert oriented respirations regular and unlabored speaking in full sentences walks with a even steady gait. He states he has no pain at this moment. I have greeted and performed a rapid initial assessment of this patient. A comprehensive ED assessment and evaluation of the patient, analysis of test results and completion of medical decision making process will be conducted by an additional ED providers. TRAVEL OUTSIDE OF THE [place] IN LAST 30 DAYS: No - Related Data Allergies/Adverse Reactions: No Known Allergies Allergy (Verified 07/16/19 02:29) Past Medical History Renal/ Medical History: Denies: Hx Peritoneal Dialysis - Immunizations Immunizations up to date: Yes Hx Diphtheria, Pertussis, Tetanus Vaccination: Yes Physical Exam - Vital signs Vitals: Temp Pulse Resp BP Pulse Ox 98.1 F 60 18 131/82 H 100 11/05/19 15:05 11/05/19 15:05 11/05/19 15:11/05/19 15:05 11/05/19 15:05 Course - Vital Signs Vital signs: Temp Pulse Resp BP Pulse Ox 98.1 F 60 18 131/82 H 100 11/05/19 15:05 11/05/19 15:05 11/05/19 15:05 11/05/19 15:05 11/05/19 15:05 Doctor's Discharge - Discharge Referrals: CRISTIAN PEDRAZA MD [Primary Care Provider] - Follow up as needed
--- NOTE | 2019-11-05 16:12 | RADIOLOGY REPORT (SQ) ---
EXAM DESCRIPTION: CHEST 2 VIEWS IMAGES COMPLETED DATE/TIME: 11/05/2019 3:35 pm REASON FOR STUDY: Intermittent chest pain COMPARISON: 10/24/2019 EXAM PARAMETERS: NUMBER OF VIEWS: two views TECHNIQUE: Digital Frontal and Lateral radiographic views of the chest acquired. RADIATION DOSE: NA LIMITATIONS: none FINDINGS: LUNGS AND PLEURA: No opacities, masses or pneumothorax. No pleural effusion. MEDIASTINUM AND HILAR STRUCTURES: No masses or contour abnormalities. HEART AND VASCULAR STRUCTURES: Heart normal size. No evidence for failure. BONES: No acute findings. HARDWARE: None in the chest. OTHER: No other significant finding. IMPRESSION: NO SIGNIFICANT RADIOGRAPHIC FINDING IN THE CHEST. TECHNICAL DOCUMENTATION: JOB ID: [id number] 2010 [employer]- All Rights Reserved Reading location - IP/workstation name: [email or web address]
[2019-11-05 16:43] LABS: ABSOLUTE BASOPHILS # (AUTO) 0.1 10^3/uL (0.0-0.2); ABSOLUTE EOSINOPHILS # (AUTO) 0.3 10^3/uL (0.0-0.6); ABSOLUTE LYMPHOCYTES (AUTO) 2.6 10^3/uL (0.5-4.7); ABSOLUTE MONOCYTES (AUTO) 0.8 10^3/uL (0.1-1.4); ABSOLUTE NEUT (AUTO) 2.6 10^3/uL (1.7-8.2); HEMATOCRIT 40.1 % (37.9-51.0); LYMPHOCYTES % (AUTO) 40.9 % (13-45); MEAN CORPUSCULAR HEMOGLOBIN 23.4 pg (27.0-33.4); MEAN CORPUSCULAR HGB CONC 32.3 g/dL (32.0-36.0); MEAN CORPUSCULAR VOLUME 72 fl (80-97); PLATELET COUNT 373 10^3/uL (150-450); RED BLOOD COUNT 5.55 10^6/uL (4.35-5.55); RED CELL DISTRIBUTION WIDTH 16.1 % (11.5-14.0); SEGMENTED NEUTROPHILS % (AUTO) 41.1 % (42-78); TOTAL CELLS COUNTED % (AUTO) 100 %; WHITE BLOOD COUNT 6.3 10^3/uL (4.0-10.5)
[2019-11-05 16:59] LABS: ALBUMIN 4.7 g/dL (3.5-5.0); ALKALINE PHOSPHATASE 104 U/L (38-126); ANION GAP 8 (5-19); ASPARTATE AMINO TRANSFERASE 30 U/L (17-59); BILIRUBIN,DIRECT 0.3 mg/dL (0.0-0.4); BILIRUBIN,TOTAL 0.9 mg/dL (0.2-1.3); BLOOD UREA NITROGEN 10 mg/dL (7-20); CARBON DIOXIDE 25 mmol/L (22-30); CHLORIDE 107 mmol/L (98-107); CREATINE KINASE 451 U/L (55-170); GLUCOSE 97 mg/dL (75-110); POTASSIUM 4.7 mmol/L (3.6-5.0); TOTAL PROTEIN 8.4 g/dL (6.3-8.2)
--- NOTE | 2019-11-05 18:29 | EKG REPORT ---
SEVERITY:- NORMAL ECG - SINUS RHYTHM : Confirmed by: Charity Uribe 05-Nov-2019 18:29:21
--- NOTE | 2019-11-06 00:36 | ER Document Report ---
ED Cardiac - General Chief Complaint: Chest Pain Stated Complaint: CHEST PAIN Time Seen by Provider: 11/05/19 15:06 Primary Care Provider: CRISTIAN PEDRAZA MD [Primary Care Provider] - Follow up as needed Mode of Arrival: Ambulatory Notes: Patient is a 34-year-old male that comes emergency department for chief complaint of chest pain. 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 Patient states that this happened about 40 minutes before arrival to the emergency department. He states that the pain resolved although shortly afterwards he felt the pain radiating across the right side of his chest as well . Pain is slightly worse with movement especially when he opens up his chest and puffs his chest forward. He denies difficulty breathing, pain with breathing, cough, fever, dizziness, passing out, nausea, vomiting, abdominal pain, or any current symptoms. Patient states he was told by his boss to come to the emergency department to be evaluated. Patient denies any diagnosed medical history, he does smoke, he states his mother at the age of 70 from cardiac arrest. He denies recreational drugs. TRAVEL OUTSIDE OF THE [place] IN LAST 30 DAYS: No - Related Data Allergies/Adverse Reactions: No Known Allergies Allergy (Verified 07/16/19 02:29) Past Medical History - General Information source: Patient - Social History Smoking Status: Current Every Day Smoker Smoking Education Provided: Yes - <3 min Drug Abuse: None Lives with: Family Family History: Reviewed & Not Pertinent Renal/ Medical History: Denies: Hx Peritoneal Dialysis - Immunizations Immunizations up to date: Yes Hx Diphtheria, Pertussis, Tetanus Vaccination: Yes Review of Systems - Review of Systems Constitutional: No symptoms reported EENT: No symptoms reported Cardiovascular: See HPI Respiratory: No symptoms reported Gastrointestinal: No symptoms reported Genitourinary: No symptoms reported Male Genitourinary: No symptoms reported Musculoskeletal: See HPI Skin: No symptoms reported Hematologic/Lymphatic: No symptoms reported Neurological/Psychological: No symptoms reported Physical Exam - Vital signs Vitals: Temp Pulse Resp BP Pulse Ox 98.1 F 60 18 131/82 H 100 11/05/19 15:05 11/05/19 15:05 11/05/19 15:05 11/05/19 15:05 11/05/19 15:05 - Notes Notes: GENERAL: Alert, interacts well. No acute distress. HEAD: Normocephalic, atraumatic. EYES: Pupils equal, round, and reactive to light. Extraocular movements intact. ENT: Oral mucosa moist, tongue midline. Oropharynx unremarkable. Airway patent. NECK: Full range of motion. Supple. Trachea midline. No lymphadenopathy. LUNGS: Clear to auscultation bilaterally, no wheezes, rales, or rhonchi. No respiratory distress. There is tenderness over the mid chest wall, this is mild, no signs of trauma, erythema, or crepitus. Symptoms are exacerbated with pushing the chest forward and rotating the shoulders back. Otherwise unremarkable. HEART: Regular rate and rhythm. No murmur ABDOMEN: Soft, non-tender. Non-distended. EXTREMITIES: Moves all 4 extremities spontaneously. No edema, normal radial and dorsalis pedis pulses bilaterally. No cyanosis. BACK: no cervical, thoracic, lumbar midline tenderness. No saddle anesthesia, normal distal neurovascular exam. Moves all extremities in full range of motion. NEUROLOGICAL: Alert and oriented x3. Normal speech. Cranial nerves II through XII grossly intact. Strength 5/5 in all extremities. PSYCH: Normal affect, normal mood. SKIN: Warm, dry, normal turgor. No rashes or lesions noted. Course - Re-evaluation Re-evalutation: Patient with a very specific and reproducible chest wall pain on exam which is worse with movement especially of the shoulders. Heart score is less than 3. CBC, chemistry unremarkable, CK is mildly elevated, troponin negative. EKG unremarkable, chest x-ray unremarkable. Troponin cycled and unremarkable. Patient patient's overall evaluation I have very low suspicion of acute intrathoracic etiology or ACS. I discussed all details with patient at length. Patient states appreciation and agreement, stable, well-appearing, asymptomatic (except for certain movements) at time of discharge. - Vital Signs Vital signs: Temp Pulse Resp BP Pulse Ox 98.5 F 64 13 125/90 H 100 11/06/19 02:01 11/05/19 23:46 11/06/19 02:01 11/06/19 02:01 11/06/19 02:01 - Laboratory Result Diagrams: 11/05/19 16:19 11/05/19 16:19 Laboratory results interpreted by me: 11/05/19 11/05/19 16:19 16:19 Hgb 13.0 L MCV 72 L MCH 23.4 L RDW 16.1 H Seg Neutrophils % 41.1 L Creatine Kinase 451 H Total Protein 8.4 H - EKG Interpretation by Me Additional EKG results interpreted by me: EKG shows sinus rhythm at a rate of 59, QTC of 389, normal axis, no T wave inversions or ST segment changes in consecutive leads. Machine reads as normal. Discharge - Discharge Clinical Impression: Chest wall pain Chest pain Qualifiers: Chest pain type: unspecified Qualified Code(s): R07.9 - Chest pain, unspecified Condition: Stable Disposition: HOME, SELF-CARE Additional Instructions: Your testing and evaluation do not show any concerning findings. The pain appears to be coming from your chest wall. This can intermittently hurt and take time to resolve. You can apply heat to your chest, you can take [id number] anti-inflammatory such as naproxen or ibuprofen. Stop smoking. Follow-up with primary care. Return if you worsen including severe worsening pain, difficulty breathing, pass ing out, vomiting, fever, or any other concerning symptoms. Forms: Return to Work Referrals: CRISTIAN PEDRAZA MD [Primary Care Provider] - Follow up as needed
[2019-11-06 02:48] VITALS: BP 125/90
== END 2019-11-06 02:48 | disposition home or self-care (01) ==
LOC: ER 14:49
DX: R07.9 Chest pain, unspecified (principal)
CPT/HCPCS: 36415; 71046; 80053; 82550; 83735; 84484; 85025; 93005; 93010; 99285

== ENCOUNTER 2020-02-02 17:55 | Emergency (ER) | payer MEDICAID ==
[2020-02-02 19:11] LABS: ABSOLUTE BASOPHILS # (AUTO) 0.1 10^3/uL (0.0-0.2); ABSOLUTE EOSINOPHILS # (AUTO) 0.4 10^3/uL (0.0-0.6); ABSOLUTE LYMPHOCYTES (AUTO) 3.6 10^3/uL (0.5-4.7); ABSOLUTE MONOCYTES (AUTO) 1.2 10^3/uL (0.1-1.4); ABSOLUTE NEUT (AUTO) 4.3 10^3/uL (1.7-8.2); BASOPHILS % (AUTO) 1.1 % (0-2); EOSINOPHILS % (AUTO) 4.5 % (0-6); HEMATOCRIT 40.1 % (37.9-51.0); LYMPHOCYTES % (AUTO) 37.3 % (13-45); MEAN CORPUSCULAR HEMOGLOBIN 23.1 pg (27.0-33.4); MEAN CORPUSCULAR HGB CONC 32.4 g/dL (32.0-36.0); MEAN CORPUSCULAR VOLUME 71 fl (80-97); MONOCYTES % (AUTO) 12.6 % (3-13); PLATELET COUNT 386 10^3/uL (150-450); RED BLOOD COUNT 5.63 10^6/uL (4.35-5.55); RED CELL DISTRIBUTION WIDTH 16.1 % (11.5-14.0); SEGMENTED NEUTROPHILS % (AUTO) 44.5 % (42-78); TOTAL CELLS COUNTED % (AUTO) 100 %; WHITE BLOOD COUNT 9.7 10^3/uL (4.0-10.5)
[2020-02-02 19:18] LABS: APPEARANCE,URINE CLEAR; BILIRUBIN,URINE NEGATIVE (NEGATIVE); COLOR,URINE YELLOW; GLUCOSE, URINE NEGATIVE (NEGATIVE); KETONES,URINE NEGATIVE (NEGATIVE); LEUKOCYTE ESTERASE,URINE NEGATIVE (NEGATIVE); NITRITE,URINE NEGATIVE (NEGATIVE); PROTEIN,URINE NEGATIVE (NEGATIVE); URINE SPECIFIC GRAVITY 1.013; UROBILINOGEN,URINE NEGATIVE mg/dL (<2.0)
[2020-02-02 19:31] LABS: ALBUMIN 4.8 g/dL (3.5-5.0); ALKALINE PHOSPHATASE 110 U/L (38-126); ANION GAP 10 (5-19); ASPARTATE AMINO TRANSFERASE 31 U/L (17-59); BILIRUBIN,DIRECT 0.2 mg/dL (0.0-0.4); BILIRUBIN,TOTAL 0.5 mg/dL (0.2-1.3); BLOOD UREA NITROGEN 17 mg/dL (7-20); CALCIUM 10.3 mg/dL (8.4-10.2); CARBON DIOXIDE 25 mmol/L (22-30); CHLORIDE 104 mmol/L (98-107); GLUCOSE 102 mg/dL (75-110); POTASSIUM 4.1 mmol/L (3.6-5.0); TOTAL PROTEIN 8.7 g/dL (6.3-8.2)
--- NOTE | 2020-02-02 20:45 | ER Document Report ---
ED General - General Chief Complaint: Back Pain Stated Complaint: BACK PAIN,LEFT FLANK PAIN Time Seen by Provider: 02/02/20 20:44 Primary Care Provider: CRISTIAN PEDRAZA MD [Primary Care Provider] - Follow up as needed TRAVEL OUTSIDE OF THE [place] IN LAST 30 DAYS: No - HPI Notes: 34-year-old male presents with multiple complaints. Patient has been intermittently experienced a frontal headache, does not occur daily, occurs occasionally, described as hurting and thumping, it is slightly present currently. No visual changes, numbness or weakness. Patient states that his nose is stuffy. States that occasionally when he breathes he has a pulling sensation. Denies shortness of breath or chest pain. States that occasionally he will have a bandlike pain across his lower abdomen, no vomiting or diarrhea. States he has a history of acid reflux and was prescribed a medication but has not started taking it yet. He also states that he additionally feels bloated after eating. He states that he recently saw his primary care doctor and had blood work done which he was told was good aside from a cholesterol of 220 and low iron. He states that he plans to eat more vegetables as he currently eats a lot of junk. Patient states that overall his symptoms have been going on for a while. New today is that he felt a brief episode of lightheadedness. - Related Data Allergies/Adverse Reactions: No Known Allergies Allergy (Verified 07/16/19 02:29) Past Medical History - General Information source: Patient - Social History Smoking Status: Current Every Day Smoker Frequency of alcohol use: None Drug Abuse: None Family History: Reviewed & Not Pertinent Renal/ Medical History: Denies: Hx Peritoneal Dialysis - Immunizations Immunizations up to date: Yes Hx Diphtheria, Pertussis, Tetanus Vaccination: Yes Review of Systems - Review of Systems Constitutional: denies: Fever EENT: See HPI Cardiovascular: denies: Chest pain Respiratory: denies: Short of breath Gastrointestinal: See HPI Genitourinary: denies: Burning, Flank pain Male Genitourinary: No symptoms reported Musculoskeletal: Back pain Skin: No symptoms reported Hematologic/Lymphatic: No symptoms reported Neurological/Psychological: No symptoms reported Physical Exam - Vital signs Vitals: Temp Pulse Resp BP Pulse Ox 99.0 F 80 20 132/71 H 100 02/02/20 18:03 02/02/20 18:03 02/02/20 18:03 02/02/20 18:03 02/02/20 18:03 - General General appearance: Appears well, Alert In distress: None - HEENT Head: Normocephalic, Atraumatic Extraocular movements intact: Yes Pupils: PERRL Neck: Supple - Respiratory Chest status: Nontender Breath sounds: Normal - Cardiovascular Rhythm: Regular Heart sounds: Normal auscultation - Abdominal Distension: No distension Tenderness: Nontender - Extremities General upper extremity: Normal ROM General lower extremity: Normal ROM - Neurological Neuro grossly intact: Yes Cognition: Normal Orientation: AAOx4 Speech: Normal Cranial nerves: Normal Motor strength normal: LUE, RUE, LLE, RLE - Psychological Associated symptoms: Normal affect - Skin Skin Temperature: Warm Course - Re-evaluation Re-evalutation: 34-year-old male here with multiple complaints which are chronic in nature. On exam he is afebrile, hemodynamically stable, well-appearing. Lungs are clear, heart RRR, abdomen is soft, no focal neuro deficits and normal range of motion of all of his extremities. Given that he did complain of some possible pleuritic chest pain, will obtain chest x-ray to fully rule out consolidation. Will provide a dose of Toradol for his multiple areas of reported aches/pains. Laboratory done through triage showed a chronic stable anemia, CMP unremarkable. Also discussed with patient that some of his reported GI symptoms could be due to acid reflux versus possible ulcer formation, I have advised him to start the Protonix as was prescribed. He is also counseled on smoking cessation. 02/02/20 22:38 Chest x-ray is without consolidation. Patient states he is feeling much better and would like to go home at this time. Discussed with him to use the PPI as prescribed. Return precautions given, stable at time of discharge. - Vital Signs Vital signs: Temp Pulse Resp BP Pulse Ox 98.6 F 68 17 127/78 H 100 02/02/20 21:11 02/02/20 22:33 02/02/20 22:33 02/02/20 22:33 02/02/20 22:33 - Laboratory Results Result Diagrams: 02/02/20 19:00 02/02/20 19:00 Laboratory Results Interpreted: 02/02/20 02/02/20 19:00 19:00 RBC 5.63 H Hgb 13.0 L MCV 71 L MCH 23.1 L RDW 16.1 H Calcium 10.3 H Total Protein 8.7 H Critical Laboratory Results Reviewed: No Critical Results - Radiology Results Critical Radiology Results Reviewed: No Critical Results Discharge - Discharge Clinical Impression: Frontal headache Disposition: HOME, SELF-CARE Referrals: CRISTIAN PEDRAZA MD [Primary Care Provider] - Follow up as needed
[2020-02-02] MEDS ORDERED: RINGERS SOLUTION,LACTATED 1,000 ML IV ONE (20:53)
[2020-02-02] MEDS ORDERED: KETOROLAC TROMETHAMINE INJ/PF 30 MG/1 ML SDV IV ONE (20:53)
--- NOTE | 2020-02-02 21:26 | RADIOLOGY REPORT (SQ) ---
CLINICAL HISTORY: eval consolidation COMPARISON: 10/24/2019. TECHNIQUE: XR CHEST 2 VIEWS 02/02/2020 8:53 PM [employer] ENGINE[employer] FINDINGS: Cardiac silhouette is normal in size. Lungs are clear without consolidation, atelectasis, mass or edema. There is no pleural effusion. There is no pneumothorax. There are no acute osseous findings. IMPRESSION: Clear lungs.
[2020-02-02 22:34] VITALS: BP 127/78
== END 2020-02-02 23:03 | disposition home or self-care (01) ==
LOC: ER 17:55
DX: R51.9 Headache, unspecified (principal); R10.30 Lower abdominal pain, unspecified; R42 Dizziness and giddiness; F17.200 Nicotine dependence, unspecified, uncomplicated; M54.9 Dorsalgia, unspecified
CPT/HCPCS: 99284; 96374; 36415; 83690; 85025; 80053; 81001; 71046; J1885; J7120

== ENCOUNTER 2020-02-22 23:37 | Emergency (ER) | payer MEDICAID ==
--- NOTE | 2020-02-23 00:30 | ER Document Report ---
ED Medical Screen (RME) - General Chief Complaint: Flank Pain Stated Complaint: ABDOMINAL PAIN Time Seen by Provider: 02/23/20 00:21 Primary Care Provider: CRISTIAN PEDRAZA MD [Primary Care Provider] - Follow up as needed Mode of Arrival: Ambulatory Information source: Patient TRAVEL OUTSIDE OF THE [place] IN LAST 30 DAYS: No - HPI Patient complains to provider of: abdo pain Notes: 02/23/20 00:29 Patient here with intermittent, diffuse abdominal bloating and pain for the last several months. No focal areas of pain currently. He also states that occasionally the pain radiates up into his chest. No chest pain or shortness of breath currently. No vomiting or diarrhea. No dysuria or hematuria. No fever. Exam: Nontoxic, no distress. No focal areas of tenderness on limited triage abdominal exam. No CVA tenderness. Lungs clear and equal throughout. Heart sounds normal. An initial examination was made on the patient as part of the triage process, and it was determined a more comprehensive evaluation was necessary. Initial orders were placed and patient was transferred to another provider in the ED who assumed care and finished evaluation and plan. - Related Data Allergies/Adverse Reactions: No Known Allergies Allergy (Verified 07/16/19 02:29) Past Medical History Renal/ Medical History: Denies: Hx Peritoneal Dialysis - Immunizations Immunizations up to date: Yes Hx Diphtheria, Pertussis, Tetanus Vaccination: Yes Physical Exam - Vital signs Vitals: Temp Pulse BP Pulse Ox 99.1 F 87 126/74 H 100 02/22/20 23:51 02/22/20 23:51 02/22/20 23:51 02/22/20 23:51 Course - Vital Signs Vital signs: Temp Pulse Resp BP Pulse Ox 99.1 F 87 126/74 H 100 02/22/20 23:51 02/22/20 23:51 02/22/20 23:51 02/22/20 23:51 Doctor's Discharge - Discharge Referrals: CRISTIAN PEDRAZA MD [Primary Care Provider] - Follow up as needed
[2020-02-23 01:03] LABS: ABSOLUTE BASOPHILS # (AUTO) 0.1 10^3/uL (0.0-0.2); ABSOLUTE EOSINOPHILS # (AUTO) 0.4 10^3/uL (0.0-0.6); ABSOLUTE LYMPHOCYTES (AUTO) 2.9 10^3/uL (0.5-4.7); ABSOLUTE MONOCYTES (AUTO) 1.1 10^3/uL (0.1-1.4); ABSOLUTE NEUT (AUTO) 5.9 10^3/uL (1.7-8.2); BASOPHILS % (AUTO) 0.8 % (0-2); EOSINOPHILS % (AUTO) 3.7 % (0-6); HEMATOCRIT 36.4 % (37.9-51.0); HEMOGLOBIN 12.1 g/dL (13.5-17.0); LYMPHOCYTES % (AUTO) 27.8 % (13-45); MEAN CORPUSCULAR HEMOGLOBIN 23.3 pg (27.0-33.4); MEAN CORPUSCULAR HGB CONC 33.2 g/dL (32.0-36.0); MEAN CORPUSCULAR VOLUME 70 fl (80-97); MONOCYTES % (AUTO) 10.9 % (3-13); PLATELET COUNT 376 10^3/uL (150-450); RED BLOOD COUNT 5.17 10^6/uL (4.35-5.55); SEGMENTED NEUTROPHILS % (AUTO) 56.8 % (42-78); TOTAL CELLS COUNTED % (AUTO) 100 %; WHITE BLOOD COUNT 10.4 10^3/uL (4.0-10.5)
[2020-02-23 01:05] LABS: APPEARANCE,URINE CLEAR; BILIRUBIN,URINE NEGATIVE (NEGATIVE); COLOR,URINE YELLOW; GLUCOSE, URINE NEGATIVE (NEGATIVE); KETONES,URINE NEGATIVE (NEGATIVE); LEUKOCYTE ESTERASE,URINE NEGATIVE (NEGATIVE); NITRITE,URINE NEGATIVE (NEGATIVE); PROTEIN,URINE NEGATIVE (NEGATIVE); URINE SPECIFIC GRAVITY 1.015; UROBILINOGEN,URINE NEGATIVE mg/dL (<2.0)
[2020-02-23 01:15] LABS: ALBUMIN 4.3 g/dL (3.5-5.0); ALKALINE PHOSPHATASE 98 U/L (38-126); ANION GAP 7 (5-19); ASPARTATE AMINO TRANSFERASE 27 U/L (17-59); BILIRUBIN,DIRECT 0.2 mg/dL (0.0-0.4); BILIRUBIN,TOTAL 0.5 mg/dL (0.2-1.3); BLOOD UREA NITROGEN 14 mg/dL (7-20); CALCIUM 9.5 mg/dL (8.4-10.2); CARBON DIOXIDE 27 mmol/L (22-30); CHLORIDE 103 mmol/L (98-107); GLUCOSE 92 mg/dL (75-110); TOTAL PROTEIN 8.3 g/dL (6.3-8.2)
--- NOTE | 2020-02-23 04:22 | RADIOLOGY REPORT (SQ) ---
EXAM DESCRIPTION: XR CHEST 2 VIEWS COMPLETED DATE/TME: 02/23/2020 03:20 CLINICAL HISTORY: 34 years, Male, epigastric pain COMPARISON: 10/24/2019 chest NUMBER OF VIEWS: 2 TECHNIQUE: 2 view chest LIMITATIONS: None. FINDINGS: Heart size normal. Lungs clear. No pneumothorax IMPRESSION: Negative chest copyright 2011 [employer]- All Rights Reserved
[2020-02-23] MEDS ORDERED: METOCLOPRAMIDE HCL ORAL SOLN 10 MG/10 ML UDCUP PO ONE (06:34)
[2020-02-23] MEDS ORDERED: MAG HYDROX/AL HYDROX/SIMETH SUSP 30 ML UDCUP PO ONE (06:34)
[2020-02-23] MEDS ORDERED: LIDOCAINE 2% VISCOUS SOLN 15 ML UDCUP PO ONE (06:34)
--- NOTE | 2020-02-23 06:43 | ER Document Report ---
ED GI/ - General Chief Complaint: Abdominal Pain Stated Complaint: ABDOMINAL PAIN Time Seen by Provider: 02/23/20 00:21 Primary Care Provider: CRISTIAN PEDRAZA MD [Primary Care Provider] - Follow up as needed Mode of Arrival: Ambulatory Information source: Patient Notes: 34-year-old male presented to ED for complaint of intermittent abdominal pain and bloating for the last couple months. He states today he had some burning that went from his epigastric area up to his chest. He states he is also had some intermittent lightheadedness. He does have a congestion and he did not know if the cigarettes or the congestion was causing the lightheadedness. He was seen in the triage area and blood work chest x-ray were completed. Hemoglobin 12.1 hematocrit 36.4 hand he has a history of mild anemia. Otherwise labs are no acute changes chest x-ray was no acute changes. Patient was treated with a GI cocktail of Reglan Maalox and viscous lidocaine. He states these completely relieved the pain in his abdomen at this time. Patient also has a runny congested nose with more swelling to the left turbinate in the right. He was treated with Claritin 10 mg, Sudafed 30 mg, Mucinex 600 mg. Constitutional: Negative for fever. HENT: Swollen nasal turbinates with purulent nasal drainage and postnasal drip. Eyes: Negative for visual changes. Cardiovascular: Patient states his abdominal pain radiates up through his chest. He states the pain started tonight after he had eating barbecue. Respiratory: Patient is stated he has no shortness of breath no cough con gestion. Gastrointestinal: Patient states he has had abdominal bloating and discomfort for several months but tonight he had some severe burning to his epigastric area up to his chest after eating barbecue. Genitourinary: Negative for dysuria. Musculoskeletal: Negative for back pain. Skin: Negative for rash. Neurological: Negative for headaches, weakness or numbness. 10 point ROS negative except as marked above and in HPI. VITAL SIGNS: Within normal limits. GENERAL: No acute distress, non-toxic appearance. HEAD: Normal with no signs of head trauma. EYES: PERRLA, EOMI, conjunctiva normal, no discharge. EARS: Hearing grossly intact. NOSE: Nasal turbinates swollen with purulent nasal drainage THROAT: Nasal drip no swelling or exudate to tonsils. NECK: Normal range of motion, no tenderness, supple, no lymphadenopathy, No adenopathy, no JVD. CHEST: Clear breath sounds bilaterally. No wheezes, rales, or rhonchi. CARDIAC: Regular rate and rhythm. S1 and S2, without murmurs, gallops, or rubs. VASCULAR: No Edema. Peripheral pulses normal and equal in all extremities. ABDOMEN: Gastric tenderness that was relieved with Maalox, Reglan, and lidocaine as a GI cocktail GASTROINTESTINAL: Bowel sounds normal GENITOURINARY: Normal, No tenderness LYMPATHTIC: No lymphadenopathy noted. MUSCULOSKELETAL: Good range of motion of all major joints. Extremities without clubbing, cyanosis or edema. NEUROLOGICAL: Alert and oriented x 3. No focal sensory or strength deficits. Speech normal. Follows commands appropriately. PSYCHIATRIC: Normal Affect, judgement and mood. SKIN: Normal appearance with no rashes or lesions. TRAVEL OUTSIDE OF THE [place] IN LAST 30 DAYS: No - HPI Patient complains to provider of: Abdominal pain, Other - URI Onset: Other - Abdominal pains been for several months worse tonight after eating barbecue nasal congestion for several days Timing/Duration: Better Quality of pain: Burning - Burning in the epigastric area Severity at maximum: Moderate Severity in ED: Mild Pain Level: 1 Location: Epigastric Associated symptoms: Other - Epigastric pain radiating up to the chest after eating barbecue. He states he has had intermittent lightheaded at times he has had nasal congestion Exacerbated by: Food - Spicy food Relieved by: Denies Similar symptoms previously: Yes Recently seen / treated by doctor: Yes - Related Data Allergies/Adverse Reactions: No Known Allergies Allergy (Verified 02/23/20 02:06) Home Medications: PRILOSEC Past Medical History - General Information source: Patient - Social History Smoking Status: Current Every Day Smoker Cigarette use (# per day): Yes - Half pack a day Smoking Education Provided: Yes - 3 min Frequency of alcohol use: None Drug Abuse: None Family History: Reviewed & Not Pertinent Patient has suicidal ideation: No Patient has homicidal ideation: No - Past Medical History Cardiac Medical History: Reports: None Pulmonary Medical History: Reports: None EENT Medical History: Reports: None Neurological Medical History: Reports: None Endocrine Medical History: Reports: None Renal/ Medical History: Reports: None Malignancy Medical History: Reports None GI Medical History: Reports: Hx Gastroesophageal Reflux Disease Musculoskeletal Medical History: Reports None Skin Medical History: Reports None Psychiatric Medical History: Reports: None Traumatic Medical History: Reports: None Infectious Medical History: Reports: None Surgical Hx: Negative Past Surgical History: Reports: None - Immunizations Immunizations up to date: Yes Hx Diphtheria, Pertussis, Tetanus Vaccination: Yes Physical Exam - Vital signs Vitals: Temp Pulse BP Pulse Ox 99.1 F 87 126/74 H 100 02/22/20 23:51 02/22/20 23:51 02/22/20 23:51 02/22/20 23:51 Course - Re-evaluation Re-evalutation: 02/23/20 08:54 And had relief of his epigastric pain with a dose of Reglan Benadryl and viscous lidocaine. He also stated that he had had intermittent episodes of lightheadedness due to his of respiratory infection. He was treated with Claritin and Sudafed and Mucinex and recommended these medicines at home. He was also instructed to please follow-up with his primary care doctor to get further treatment for his reflux and to not eat barbecue at nighttime with reflux. Verbalized understanding agreement with treatment plan and he was discharged home. - Vital Signs Vital signs: Temp Pulse Resp BP Pulse Ox 98.3 F 59 L 18 126/80 H 100 02/23/20 07:22 02/23/20 07:22 02/23/20 07:22 02/23/20 07:22 02/23/20 07:22 - Laboratory Results Result Diagrams: 02/23/20 00:47 02/23/20 00:47 Laboratory Results Interpreted: 02/23/20 02/23/20 00:47 00:47 Hgb 12.1 L Hct 36.4 L MCV 70 L MCH 23.3 L RDW 16.0 H Sodium 136.6 L Total Protein 8.3 H Critical Laboratory Results Reviewed: No Critical Results - Radiology Results Critical Radiology Results Reviewed: No Critical Results Discharge - Discharge Clinical Impression: Reflux gastritis URI (upper respiratory infection) Qualifiers: URI type: unspecified viral URI Qualified Code(s): J06.9 - Acute upper respiratory infection, unspecified Condition: Stable Disposition: HOME, SELF-CARE Additional Instructions: ACID REFLUX DISEASE (GERD): Gastro-Esophageal Reflux Disease (GERD) is caused by stomach acid refluxing back up into the esophagus. The valve at the end of the esophagus may be weak. This is common in persons with a hiatal hernia. GERD symptoms can include indigestion, chest pain, heartburn, or food "sticking." Certain foods, alcohol, and aspirin can make GERD worse. Treatment depends on the severity. Usually, antacids or acid-suppressing medicines are used. When the esophagus is acutely inflamed, the physician will often prescribe membrane-protective drugs such as Carafate. Some patients benefit from medication such as Reglan that tightens the valve at the top of the stomach. Avoid those foods that bring on your symptoms. For many people, these foods are coffee, chocolate, onions, garlic, and carbonated drinks. Don't use alcohol, aspirin, caffeine, or tobacco. Don't eat late at night -- within 4 hours of bedtime. Don't over-eat. If necessary, elevate the head of your bed about 4 inches so that stomach acid will not roll up into your esophagus. Call the doctor if you develop severe chest pain, inability to swallow fluids, fever, or worsening symptoms. UPPER RESPIRATORY ILLNESS: You have a viral infection of the respiratory passages -- a "cold." This common infection causes nasal congestion, drainage, and often sore throat and cough. It is highly contagious. The disease usually lasts about 10 to 14 days. There is no "cure" for the viral infection -- it must run its course. If there is a complication, such as bacterial infection in the nose, sinuses, middle ear, or bronchial tubes, antibiotics may be required. The antibiotics won't affect the virus. Drink plenty of fluids. A humidifier may help. An expectorant medication or decongestant may make you more comfortable. Use acetaminophen or ibuprofen for fever or aches. See the doctor if fever persists over two days, if there is any significant worsening of your symptoms, or if you simply fail to improve as expected. Reglan (Metoclopramide) Reglan has been prescribed. This medicine affects the stomach and intestines. It can be used to treat nausea and vomiting, to prevent reflux of stomach acid up into the esophagus, or to increase the contractions of the stomach and intestines. It is often prescribed for esophagitis, and for paralysis of the stomach in diabetics. Reglan can cause either mild restlessness or drowsiness. You should contact the doctor at once if you become extremely restless, anxious, or cannot sleep, or if you develop uncontrollable motions of the lips, tongue, or jaw. Do not take alcohol with this medicine. Do not drive or operate machinery until you have been taking this medicine long enough to know how it affects you. Call the doctor if you develop abdominal pains, lightheadedness, black s tool, or blood in the stool or vomitus. Antacid Therapy You have been instructed to start antacid therapy. Antacids directly neutralize stomach acid. This is useful for acid irritation of the esophagus, gastritis, and ulcers. You should take two tablespoons of antacid one hour after each meal and three hours after each meal. If you are not eating, take the antacid every two hours. If you are using a concentrate (such as Maalox TC), use only one tablespoon. Many antacids affect the bowels. The most common problem is diarrhea. In this case, a pure aluminum hydroxide antacid (such as AlternaGel) can be substituted for some or all doses. If the problem is constipation, add a teaspoon of Milk of Magnesia to each dose. Call the doctor if you experience continued diarrhea or constipation, or if you develop lightheadedness, bloody stool or vomitus, severe abdominal pain, or black stool. You have been recommended treatment with Claritin 10 mg Sudafed 30 mg and Mucinex 600 mg. These are all [id number] medications for cough cold congestion. You do need to call the go to the pharmacist to get the Sudafed from behind the counter please get a little red pills they are more effective. You could also use Flonase which is [id number] 1 spray each nostril twice a day. You could also use salt soda solution gargles. These will help to remove the drainage from the back your throat. Chloraseptic spray was over-the- counter that will also help with your sore throat. Salt and soda solution gargle 1 quart of water 1 tablespoon of salt 1 teaspoon of baking soda Mixed 3 ingredients together and boil for 1 minute Placed in a covered quart jar Use 1/2 ounce of cold solution to gargle 3 times a day SMOKING: If you smoke, you should stop smoking. The tar and chemicals in cigarette smoke are harmful. Smoking has been shown to cause: emphysema chronic bronchitis lung cancer mouth and throat cancer stomach and pancreas cancer premature aging defects In addition, smoking increases ear and lung infections in children of smoke rs. FOLLOW-UP CARE: If you have been referred to a physician for follow-up care, call the physicia ns office for an appointment as you were instructed or within the next two days. If you experience worsening or a significant change in your symptoms, notify the physician immediately or return to the Emergency Department at any time for re-evaluation. Forms: Elevated Blood Pressure, Smoking Cessation Education, Return to Work Referrals: CRISTIAN PEDRAZA MD [Primary Care Provider] - Follow up as needed
[2020-02-23] MEDS ORDERED: GUAIFENESIN 600 MG TABLET.SA PO ONE (06:59)
[2020-02-23] MEDS ORDERED: LORATADINE 10 MG TABLET PO ONE (06:59)
[2020-02-23] MEDS ORDERED: PSEUDOEPHEDRINE HCL 30 MG TABLET PO ONE (06:59)
[2020-02-23 07:25] VITALS: BP 126/80
--- NOTE | 2020-02-23 10:35 | EKG REPORT ---
SEVERITY:- NORMAL ECG - SINUS RHYTHM : Confirmed by: Charity Uribe 23-Feb-2020 10:34:26
== END 2020-02-23 07:25 | disposition home or self-care (01) ==
LOC: ER 23:37
DX: K21.9 Gastro-esophageal reflux disease without esophagitis (principal); K29.60 Other gastritis without bleeding; R10.13 Epigastric pain; J06.9 Acute upper respiratory infection, unspecified; B97.89 Other viral agents as the cause of diseases classified elsewhere; R07.9 Chest pain, unspecified; R42 Dizziness and giddiness; D64.9 Anemia, unspecified; R09.82 Postnasal drip; F17.210 Nicotine dependence, cigarettes, uncomplicated; Z79.899 Other long term (current) drug therapy
CPT/HCPCS: 93005; 99285; 36415; 83690; 85025; 80053; 81001; 71046; 93010; J3490 ×5